=== PATIENT | female | born 1960 | race Hispanic/Latino ===

== ENCOUNTER 2019-08-31 18:06 | Emergency (ER) | payer SELFPAY ==
[2019-08-31] MEDS ORDERED: IBUPROFEN 600 MG TAB PO ONE (18:49)
[2019-08-31] MEDS ORDERED: ACETAMINOPHEN 325 MG TAB PO ONE (18:49)
--- NOTE | 2019-08-31 18:53 | Emergency Department Report ---
ED Lower Extremity HPI - General Chief Complaint: Extremity Injury, Lower Stated Complaint: KNEE PAIN Time Seen by Provider: 08/31/19 18:26 Source: patient, RN notes reviewed Mode of arrival: Ambulatory Limitations: Physical Limitation - History of Present Illness Initial Comments: During the entire history and physical examination, I am silo painter and escorted by nurse Irlanda Springer The patient is a 59-year-old female. She is not known to myself previously. She states no fever, cough, or confirmed exposure to coronavirus. She presents to the ER with a complaint of right anterior quadricep pain, swelling, after mechanical fall approximately 1 week ago. She fell from standing onto her right knee, and felt like she pulled or popped something in her right anterior quadricep. She denies DVT and pulmonary embolism risk factors. Her pain is sharp, throbbing and aching, increases with palpation, range of motion, right leg extension, and decreases with rest and position. She has also has right anterior knee pain. No other additional injuries or complaints. Minimal relief with [id number] analgesics. MD Complaint: thigh injury, knee injury -: days(s) Injury: Thigh: Right, Knee: Right Type of Injury: blunt Place: home Severity: moderate Improves With: rest Worsens With: movement, palpation Context: fall Associated Symptoms: able to partially bear weight, other Treatments Prior to Arrival: NSAIDS - Related Data Home Medications Medication Instructions Recorded Confirmed Last Taken Lisinopril/Hydrochlorothiazide 04/20/13 04/20/13 Unknown [Zestoretic 20-25 mg] Previous Rx's Medication Instructions Recorded Last Taken Type Acetaminophen [Non-Aspirin Extra 500 mg PO Q6HR PRN #30 tablet 08/31/19 Unknown Rx Strength] Amlodipine Besylate [Norvasc] 5 mg PO QDAY #30 tablet 08/31/19 Unknown Rx Ibuprofen [Motrin] 600 mg PO Q8H PRN #30 tablet 08/31/19 Unknown Rx Allergies Allergy/AdvReac Type Severity Reaction Status Date / Time tetracycline [Tetracycline] Allergy Rash Verified 08/31/19 18:08 tramadol Allergy Itching Verified 08/31/19 18:08 ED Review of Systems ROS: Stated complaint: KNEE PAIN Other details as noted in HPI Constitutional: denies: fever Eyes: as per HPI ENT: as per HPI Respiratory: see HPI. denies: cough Cardiovascular: denies: chest pain Gastrointestinal: denies: abdominal pain Genitourinary: as per HPI Musculoskeletal: arthralgia, myalgia Skin: as per HPI Neurological: as per HPI. denies: headache, numbness, paresthesias, confusion Psychiatric: as per HPI Hematological/Lymphatic: as per HPI. denies: easy bleeding ED Past Medical Hx - Past Medical History Hx Hypertension: Yes Additional medical history: hypothyroidism - Surgical History Past Surgical History?: No - Social History Smoking Status: Never Smoker - Medications Home Medications: Home Medications Medication Instructions Recorded Confirmed Last Taken Type Lisinopril/Hydrochlorothiazide 04/20/13 04/20/13 Unknown History [Zestoretic 20-25 mg] Acetaminophen [Non-Aspirin Extra 500 mg PO Q6HR PRN #30 tablet 08/31/19 Unknown Rx Strength] Amlodipine Besylate [Norvasc] 5 mg PO QDAY #30 tablet 08/31/19 Unknown Rx Ibuprofen [Motrin] 600 mg PO Q8H PRN #30 tablet 08/31/19 Unknown Rx ED Physical Exam - General Limitations: Physical Limitation General appearance: alert, in no apparent distress - Head Head exam: Present: atraumatic, normocephalic - Eye Eye exam: Present: normal appearance, EOMI. Absent: nystagmus - ENT ENT exam: Present: normal exam, normal orophraynx, mucous membranes moist, normal external ear exam - Neck Neck exam: Present: normal inspection, full ROM. Absent: tenderness, meningismus - Respiratory Respiratory exam: Present: normal lung sounds bilaterally. Absent: respiratory distress - Cardiovascular Cardiovascular Exam: Present: regular rate, normal rhythm, normal heart sounds. Absent: bradycardia, tachycardia, irregular rhythm, systolic murmur, diastolic murmur, rubs, gallop - GI/Abdominal GI/Abdominal exam: Present: soft. Absent: distended, tenderness, guarding, rebound, rigid, pulsatile mass - Extremities Exam Extremities exam: Present: normal inspection, full ROM (Full range of motion noted to the bilateral knees, ankles and hips. Patient is able to extend and flex both knees, however, she has significant pain when extending the right knee.), tenderness (The right anterior quadricep is indurated, with no redness, pus or streaking. There is also tenderness. The muscular compartments are soft.), normal capillary refill, other (2+ pulses noted in the bilateral upper and lower extremities. There is no palpable cord. negative Homans sign. Muscular compartments are soft. The pelvis is stable.). Absent: calf tenderness - Back Exam Back exam: Present: normal inspection, full ROM. Absent: tenderness, CVA tenderness (R), CVA tenderness (L), paraspinal tenderness, vertebral tenderness - Neurological Exam Neurological exam: Present: alert, oriented X3, other (There is no facial droop. The tongue is midline. Extraocular movements are intact bilaterally. There is 5 out of 5 strength in bilateral upper and lower extremities. Sensation is intact to light touch bilateral upper and lower extremities. ). Absent: motor sensory deficit - Psychiatric Psychiatric exam: Present: normal affect, normal mood - Skin Skin exam: Present: warm, dry, intact, normal color. Absent: rash ED Course Vital Signs 08/31/19 08/31/19 18:12 20:02 Temperature 97.8 F Pulse Rate 109 H 88 Respiratory 20 18 Rate Blood Pressure 261/172 Blood Pressure 242/141 [Left] O2 Sat by Pulse 97 99 Oximetry - Reevaluation(s) Reevaluation #1: 08/31/19 20:04 Elevated blood pressure is reviewed and appreciated. This is likely chronic. Patient has not been on antihypertensive therapy for quite some time. Please reference the [employer] clinical policy on hypertension which is not acutely symptomatic. Patient will be restarted on blood pressure medication, she can follow-up with an outpatient primary care doctor for this ED Lower Extremity MDM - Lab Data Vital Signs 08/31/19 08/31/19 18:12 20:02 Temperature 97.8 F Pulse Rate 109 H 88 Respiratory 20 18 Rate Blood Pressure 261/172 Blood Pressure 242/141 [Left] O2 Sat by Pulse 97 99 Oximetry - Radiology Data Radiology results: pending, report reviewed, image reviewed interpreted by me: X-ray of the right hip, pelvis, right femur, right knee, right fibula/tibia negative for acute fracture/dislocation. DJD is noted - Medical Decision Making Differential diagnosis, including but not limited to: Quadriceps sprain, strain, DJD, fracture, dislocation Assessment and plan: 59-year-old female status post mechanical fall 1 week ago, with palpable right anterior quadricep and duration, suspicious for partial quadriceps tear, versus sprain, strain. X-rays show no fracture or dislocation, and she is neurovascularly intact. Her physical examination is otherwise unremarkable. She does not appear to have an emergent medical condition at this time. Weightbearing as tolerated, crutches as needed for assistance, bulky Chin dressing applied to right quadricep, she will need to follow-up with outpatient orthopedic/physical therapy. Discussed this plan of care with the patient who verbalized understanding, and who is amenable to this plan of care Critical care attestation.: If time is entered above; I have spent that time in minutes in the direct care of this critically ill patient, excluding procedure time. ED Disposition Clinical Impression: Elevated blood pressure reading Strain of right quadriceps Qualifiers: Encounter type: initial encounter Qualified Code(s): S76.111A - Strain of right quadriceps muscle, fascia and tendon, initial encounter Disposition: TO HOME OR SELFCARE Is pt being admited?: No Does the pt Need Aspirin: No Condition: Stable Instructions: Muscle Strain (ED) Additional Instructions: Use the crutches as needed and directed. Weightbearing as tolerated in the right lower extremity. Take the pain medication as needed and directed. Alternate ice packs, and heat packs. Follow-up with an orthopedist or physical therapist or [employer] within the next 7 to 10 days. Return to the emergency room right away with new, worsened or different symptoms, or symptoms not present on the initial emergency room evaluation. Please avoid strenuous physical activities and heavy lifting. Patient was also found to have elevated blood pressure while here in the emergency room today. Take the blood pressure medication as directed, follow-up with the primary care doctor for a blood pressure check in 2 to 4 weeks. Long-term complications of hypertension and elevated blood pressure include stroke, heart attack, disability, paralysis, loss of quality of life. Ways to improve blood pressure include exercise, weight loss, proper diet, including plenty of fiber, vegetables, lean protein, avoidance of starches, sugars, simple carbohydrates and sugary drinks. Prescriptions: Ibuprofen [Motrin] 600 mg PO Q8H PRN #30 tablet PRN Reason: Pain Acetaminophen [Non-Aspirin Extra Strength] 500 mg PO Q6HR PRN #30 tablet PRN Reason: Pain , Severe (7-10) Referrals: [facility] [Provider Group] - 3-5 Days PETE AGUIRRE MD [Staff Physician] - 3-5 Days CARINA FISCHER MD [Staff Physician] - 3-5 Days [facility] [Provider Group] - 3-5 Days
--- NOTE | 2019-08-31 19:53 | XRay Report ---
HISTORY:fall right leg pain COMPARISON: None. TECHNIQUE: AP lateral and obliques views were obtained FINDINGS: Bones: No fracture or dislocation. Joint spaces: Maintained. Soft tissues: No significant abnormality. Additional findings: None. IMPRESSION: 1. No significant abnormality. Signer Name: Patel Euceda MD Signed: 08/31/2019 7:49 PM Workstation Name: [id number]
--- NOTE | 2019-08-31 19:54 | XRay Report ---
HISTORY:falll right leg pain COMPARISON: None. TECHNIQUE: AP lateral and obliques views were obtained FINDINGS: Bones: No fracture or dislocation. Joint spaces: Maintained. Soft tissues: No significant abnormality. Additional findings: None. IMPRESSION: 1. No significant abnormality. Signer Name: Patel Euceda MD Signed: 08/31/2019 7:50 PM Workstation Name: [id number]
[2019-08-31 20:03] VITALS: BP 242/141
== END 2019-08-31 20:20 | disposition home or self-care (01) ==
LOC: ED 18:06
DX: S76.111A Strain of right quadriceps muscle, fascia and tendon, initial encounter (principal); I10 Essential (primary) hypertension; E03.9 Hypothyroidism, unspecified; X58.XXXA Exposure to other specified factors, initial encounter; Y93.89 Activity, other specified; Y92.89 Other specified places as the place of occurrence of the external cause; Y99.8 Other external cause status
CPT/HCPCS: 99283

== ENCOUNTER 2020-04-11 12:37 | Outpatient (CLI) | payer MEDICAID | END 2020-04-11 12:38 | disposition home or self-care (01) | LOC: CARD 12:37 | PROVIDERS: ATTEND Family Medicine | DX: I10 Essential (primary) hypertension (principal) | CPT/HCPCS: 93005 ==

== ENCOUNTER 2021-05-01 10:39 | Emergency (ER) | payer MEDICAID ==
[2021-05-01] MEDS ORDERED: cloNIDine 0.2 MG TAB PO ONE (11:29)
--- NOTE | 2021-05-01 11:29 | Event Note ---
ED Screening Note Date of service: 05/01/21 Time: 11:28 ED Screening Note: Patient presents with complaints of sudden onset of left shoulder pain this morning She states she was moving boxes yesterday and believes she hurt her arm Patient has history of an MO, diabetes, hypertension Blood pressure extremely elevated today Denies shortness of breath This initial assessment/diagnostic orders/clinical plan/treatment(s) is/are subject to change based on patients health status, clinical progression and re- assessment by fellow clinical providers in the ED. Further treatment and workup at subsequent clinical providers discretion. Patient/guardian urged not to elope from the ED as their condition may be serious if not clinically assessed and managed. Initial orders include: EKG Chest x-ray Labs
[2021-05-01] MEDS ORDERED: KETOROLAC 60 MG/2 ML INJ IM ONE (11:38)
--- NOTE | 2021-05-01 11:42 | Emergency Department Report ---
HPI - General Chief Complaint: Extremity Injury, Upper Time Seen by Provider: 05/01/21 11:18 - HPI HPI: MSE 1 The patient is a 60-year-old female present with a chief complaint of left shoulder pain. The patient states yesterday she was unpacking boxes for several hours and later that evening she developed pain in her left shoulder. Patient complains excruciating pain whenever she attempts to move her left shoulder. Patient denies any direct trauma. ED Past Medical Hx - Past Medical History Hx Hypertension: Yes Hx Diabetes: Yes Additional medical history: hypothyroidism, hyperlipidemia - Surgical History Past Surgical History?: No - Family History Family history: no significant - Social History Smoking Status: Current Every Day Smoker (1/8 pack/day) Substance Use Type: None (Denies illicit drug use), Alcohol (Occasional) - Medications Home Medications: Home Medications Medication Instructions Recorded Confirmed Last Taken Type Lisinopril/Hydrochlorothiazide 04/20/13 04/20/13 Unknown History [Zestoretic 20-25 mg] Acetaminophen [Non-Aspirin Extra 500 mg PO Q6HR PRN #30 tablet 08/31/19 Unknown Rx Strength] Amlodipine Besylate [Norvasc] 5 mg PO QDAY #30 tablet 08/31/19 Unknown Rx Ibuprofen [Motrin] 600 mg PO Q8H PRN #30 tablet 08/31/19 Unknown Rx Amlodipine Besylate [Norvasc] 10 mg PO DAILY #60 tablet 10/26/19 Unknown Rx Cyclobenzaprine [Flexeril] 10 mg PO QHS PRN #10 tablet 10/26/19 Unknown Rx Naproxen 500 mg PO Q12H PRN #12 tablet 10/26/19 Unknown Rx Cyclobenzaprine [Flexeril] 10 mg PO TID PRN #10 tablet 05/01/21 Unknown Rx HYDROcodone/APAP 5-325 [[place] 1 - 2 each PO Q6HR PRN #10 tablet 05/01/21 Unknown Rx 5/325] Ibuprofen [Motrin 800 MG tab] 800 mg PO Q8HR PRN #20 tablet 05/01/21 Unknown Rx ED Review of Systems ROS: Stated complaint: shoulder pains Other details as noted in HPI Constitutional: no symptoms reported Eyes: denies: eye pain ENT: denies: throat pain Respiratory: no symptoms reported Cardiovascular: denies: chest pain Endocrine: no symptoms reported Gastrointestinal: denies: nausea Genitourinary: denies: dysuria Musculoskeletal: arthralgia, myalgia Neurological: denies: headache Physical Exam - Physical Exam Vital Signs: Vital Signs 05/01/21 10:58 Temperature 98.2 F Pulse Rate 64 Respiratory 15 Rate Blood Pressure 237/122 O2 Sat by Pulse 95 Oximetry Physical Exam: GENERAL: The patient is well-developed well-nourished female sitting in chair not appearing to be in acute distress. [] HEENT: Normocephalic. Atraumatic. Extraocular motions are intact. Patient has moist mucous membranes. NECK: Supple. Trachea mid CHEST/LUNGS: Clear to auscultation. There is no respiratory distress noted. HEART/CARDIOVASCULAR: Regular. There is no tachycardia. There is no gallop rub or murmur. ABDOMEN: Abdomen is soft, nontender. Patient has normal bowel sounds. There is no abdominal distention. SKIN: There is no rash. There is no edema. There is no diaphoresis. NEURO: The patient is awake, alert, and oriented. The patient is cooperative. The patient has no focal neurologic deficits. The patient has normal speech. GCS 15 MUSCULOSKELETAL: There is limited range of motion of left shoulder secondary to pain ED Course Vital Signs 05/01/21 10:58 Temperature 98.2 F Pulse Rate 64 Respiratory 15 Rate Blood Pressure 237/122 O2 Sat by Pulse 95 Oximetry ED Medical Decision Making - Lab Data Result diagrams: 05/01/21 11:38 05/01/21 11:38 Laboratory Tests 05/01/21 05/01/21 11:38 11:38 WBC 7.5 RBC 4.72 Hgb 15.2 H Hct 47.0 H MCV 100 H MCH 32 MCHC 32 RDW 13.9 Plt Count 196 Lymph % (Auto) 14.4 Levy % (Auto) 8.0 H Eos % (Auto) 1.4 Baso % (Auto) 0.8 Lymph # (Auto) 1.1 L Levy # (Auto) 0.6 Eos # (Auto) 0.1 Baso # (Auto) 0.1 Seg Neutrophils % 75.4 H Seg Neutrophils # 5.7 Sodium 135 L Potassium 4.4 Chloride 100.8 Carbon Dioxide 19 L Anion Gap 20 BUN 33 H Creatinine 1.5 H Estimated GFR 36 BUN/Creatinine Ratio 22 Glucose 234 H Calcium 9.5 Total Bilirubin 0.30 AST 13 ALT 15 Alkaline Phosphatase 66 Troponin T < 0.010 Total Protein 6.4 Albumin 3.7 L Albumin/Globulin Ratio 1.4 - EKG Data -: EKG Interpreted by Me EKG shows normal: sinus rhythm Rate: normal - EKG Data When compared to previous EKG there are: no significant change Interpretation: unchanged when compared t (04/11/2020) - Radiology Data Radiology results: report reviewed (Chest x-ray), image reviewed (Chest x-ray) [facility] [address] [place] [address] XRay Report Signed Patient: JEANCARLOS GODWIN MR#: [id number] : 1960 Acct:[id number] Age/Sex: 60 / F ADM Date: 05/01/21 Loc: ED Attending Dr: Ordering Physician: AMI ENRIQUEZ Date of Service: 05/01/21 Procedure(s): XR chest routine 2V Accession Number(s): [id number] cc: AMI ENRIQUEZ Fluoro Time In Minutes: CHEST PA AND LATERAL VIEWS INDICATION: chest pain/left shoulder pain. COMPARISON: 11/25/2019 FINDINGS: Support devices: None. Heart: Within normal limits. Lungs/Pleura: No acute pulmonary or pleural findings. IMPRESSION: 1. No acute findings. Signer Name: Jarrett Galindo MD Signed: 05/01/2021 12:35 PM Workstation Name: [id number] Transcribed By: Dictated By: Jarrett Galindo MD Electronically Authenticated By: Jarrett Galindo MD Signed Date/Time: 05/01/21 1235 DD/ 1232 TD/TT: Print Cancel - Differential Diagnosis Rotator cuff injury, bursitis, hypertensive urgency Critical care attestation.: If time is entered above; I have spent that time in minutes in the direct care of this critically ill patient, excluding procedure time. ED Disposition Clinical Impression: Left shoulder pain, Acute bursitis of left shoulder Disposition: 01 HOME / SELF CARE / HOMELESS Is pt being admited?: No Does the pt Need Aspirin: No Condition: Stable Instructions: Bursitis, Wist-st-Nsdv, Shoulder Pain Additional Instructions: Return to the emergency department should you develop worsening symptoms, inability to tolerate food or liquids, high fever or any other concerns Prescriptions: Cyclobenzaprine [Flexeril] 10 mg PO TID PRN #10 tablet PRN Reason: Muscle Spasm Ibuprofen [Motrin 800 MG tab] 800 mg PO Q8HR PRN #20 tablet PRN Reason: Pain, Moderate (4-6) HYDROcodone/APAP 5-325 [[place] 5/325] 1 - 2 each PO Q6HR PRN #10 tablet PRN Reason: Pain Referrals: PRIMARY CAREMD [Primary Care Provider] - 3-5 Days PETE AYALA MD [Staff Physician] - 3-5 Days (Dr. Ayala is an orthopedic surgeon. Please follow-up with him for further evaluate) Time of Disposition: 15:37
[2021-05-01 12:29] LABS: Basophils # (Auto) 0.1 K/mm3 (0.0-0.1); Basophils % (Auto) 0.8 % (0.0-1.8); Eosinophils # (Auto) 0.1 K/mm3 (0.0-0.4); Eosinophils % (Auto) 1.4 % (0.0-4.3); Hemoglobin 15.2 gm/dl (10.1-14.3); Lymphocytes # (Auto) 1.1 K/mm3 (1.2-5.4); Lymphocytes % (Auto) 14.4 % (13.4-35.0); Mean Corpuscular HGB Conc 32 % (30-34); Mean Corpuscular Volume 100 fl (79-97); Monocytes # (Auto) 0.6 K/mm3 (0.0-0.8); Platelet Count 196 K/mm3 (140-440); Red Blood Count 4.72 M/mm3 (3.65-5.03); Red Cell Distribution Width 13.9 % (13.2-15.2)
[2021-05-01 12:31] LABS: Alanine Aminotransferase 15 units/L (7-56); Albumin 3.7 g/dL (3.9-5); BUN/Creatinine Ratio 22; Blood Urea Nitrogen 33 mg/dL (7-17); Calcium 9.5 mg/dL (8.4-10.2); Hemolysis Index 16
--- NOTE | 2021-05-01 12:40 | XRay Report ---
CHEST PA AND LATERAL VIEWS INDICATION: chest pain/left shoulder pain. COMPARISON: 11/25/2019 FINDINGS: Support devices: None. Heart: Within normal limits. Lungs/Pleura: No acute pulmonary or pleural findings. IMPRESSION: 1. No acute findings. Signer Name: Jarrett Galindo MD Signed: 05/01/2021 12:35 PM Workstation Name: [id number]
[2021-05-01 16:13] VITALS: BP 131/84
--- NOTE | 2021-05-02 12:12 | Electrocardiograph Report ---
[facility] Test Date: 2021-05-01 Test Time: 15:18:12 Pat Name: JEANCARLOS GODWIN Department: Room: Gender: F Public Works Inspector: LAWANDA : 1960 Requested By: AMI ENRIQUEZ Order Number: [id number] Reading MD: Hiram Mitchell Measurements Intervals [place] Rate: 53 P: 40 [place]: 201 QRS: 259 QRSD: 81 T: 105 QT: 461 QTc: 436 Interpretive Statements Sinus rhythm LAD, consider LAFB or inferior infarct Anteroseptal infarct, old Repol abnrm suggests ischemia, lateral leads ST elevation, consider inferior injury No previous ECG available for comparison Electronically Signed On 05-02-2021 12:12:27 EST by Hiram Mitchell
== END 2021-05-01 16:13 | disposition home or self-care (01) ==
LOC: ED 10:39
DX: M25.512 Pain in left shoulder (principal); M75.52 Bursitis of left shoulder; I10 Essential (primary) hypertension; E11.8 Type 2 diabetes mellitus with unspecified complications; E03.9 Hypothyroidism, unspecified; E78.5 Hyperlipidemia, unspecified; F17.200 Nicotine dependence, unspecified, uncomplicated; Z88.1 Allergy status to other antibiotic agents; Z88.5 Allergy status to narcotic agent
CPT/HCPCS: 36415; 71046; 80053; 84484; 85025; 93005; 96372; 99284; J1885

== ENCOUNTER 2021-07-28 14:12 | Inpatient (IN) | payer MEDICAID ==
[2021-07-28] MEDS ORDERED: SODIUM CHLORIDE 0.9% 1000 ML 1,000 ML IV ONE (15:11)
[2021-07-28] MEDS ORDERED: MORPHINE 4 MG/1 ML INJ IV ONE (15:12)
[2021-07-28] MEDS ORDERED: ONDANSETRON 4 MG/2 ML INJ IV ONE (15:12)
[2021-07-28 15:54] LABS: Hematocrit 48.4 % (30.3-42.9); Hemoglobin 15.9 gm/dl (10.1-14.3); Mean Corpuscular HGB Conc 33 % (30-34); Mean Corpuscular Volume 98 fl (79-97); Platelet Count 116 K/mm3 (140-440); Red Blood Count 4.94 M/mm3 (3.65-5.03); Red Cell Distribution Width 15.1 % (13.2-15.2)
[2021-07-28 16:19] LABS: Albumin 3.5 g/dL (3.9-5); Calcium 10.2 mg/dL (8.4-10.2)
[2021-07-28] MEDS ORDERED: amLODIPine 5 MG TAB PO ONE (17:37)
--- NOTE | 2021-07-28 17:37 | Emergency Department Report ---
ED General Adult HPI - General Chief complaint: Weakness Stated complaint: cramps PUI?: No Time Seen by Provider: 07/28/21 15:04 Source: patient, RN notes reviewed, old records reviewed Mode of arrival: Ambulatory Limitations: No Limitations - History of Present Illness Initial comments: The patient was evaluated in the emergency department for symptoms described in the history of present illness. He/she was evaluated in the context of the global COVID-19 pandemic, which necessitated consideration that the patient might be at risk for infection with the virus that causes COVID-19. Institutional protocols and algorithms that pertain to the evaluation of patients at risk for COVID-19 are in a state of rapid change based on information released by regulatory bodies including the CDC and federal and state organizations. These policies and algorithms were followed during the patient's care in the emergency department. Please note that these policies, procedures and recommendations changed on a rapid basis. The patient is a 61-year-old female with a history of being COVID-19 vaccinated, hypertension, diabetes, currently maintained on Invokana for the past 3 months. She presents to the ER today with a complaint of malaise, fatigue, and cramping. She endorses suprapubic pressure, but no dysuria. She denies dark-colored urine. She denies fevers and chills. She denies chest pain and upper abdominal pain. She denies vomiting, diarrhea. She denies muscular pain but endorses diffuse myalgias. -: Gradual, days(s) Location: left, right, upper extremity, lower extremity Severity scale (0 -10): 7 Quality: aching Consistency: intermittent Improves with: none Worsens with: none - Related Data Home Medications Medication Instructions Recorded Confirmed Last Taken Lisinopril/Hydrochlorothiazide 04/20/13 04/20/13 Unknown [Zestoretic 20-25 mg] Previous Rx's Medication Instructions Recorded Last Taken Type Acetaminophen [Non-Aspirin Extra 500 mg PO Q6HR PRN #30 tablet 08/31/19 Unknown Rx Strength] Amlodipine Besylate [Norvasc] 5 mg PO QDAY #30 tablet 08/31/19 Unknown Rx Ibuprofen [Motrin] 600 mg PO Q8H PRN #30 tablet 08/31/19 Unknown Rx Amlodipine Besylate [Norvasc] 10 mg PO DAILY #60 tablet 05/28/20 Unknown Rx Cyclobenzaprine [Flexeril] 10 mg PO QHS PRN #10 tablet 10/26/19 Unknown Rx Naproxen 500 mg PO Q12H PRN #12 tablet 10/26/19 Unknown Rx Cyclobenzaprine [Flexeril] 10 mg PO TID PRN #10 tablet 05/01/21 Unknown Rx HYDROcodone/APAP 5-325 [Hardy 1 - 2 each PO Q6HR PRN #10 tablet 05/01/21 Unknown Rx 5/325] Ibuprofen [Motrin 800 MG tab] 800 mg PO Q8HR PRN #20 tablet 05/01/21 Unknown Rx Allergies Allergy/AdvReac Type Severity Reaction Status Date / Time tetracycline [Tetracycline] Allergy Rash Verified 10/26/19 14:00 tramadol Allergy Itching Verified 10/26/19 14:00 ED Review of Systems ROS: Stated complaint: HIGH GLUCOSE Other details as noted in HPI Constitutional: malaise, weakness. denies: fever Eyes: denies: eye discharge ENT: denies: epistaxis Respiratory: denies: cough Cardiovascular: denies: chest pain Gastrointestinal: nausea. denies: abdominal pain, vomiting, diarrhea Genitourinary: denies: dysuria Musculoskeletal: arthralgia, myalgia Neurological: weakness Psychiatric: anxiety ED Past Medical Hx - Past Medical History Hx Hypertension: Yes Hx Diabetes: Yes Additional medical history: hypothyroidism, hyperlipidemia - Social History Smoking Status: Current Every Day Smoker (1/8 pack/day) Substance Use Type: None (Denies illicit drug use), Alcohol (Occasional) - Medications Home Medications: Home Medications Medication Instructions Recorded Confirmed Last Taken Type Lisinopril/Hydrochlorothiazide 04/20/13 04/20/13 Unknown History [Zestoretic 20-25 mg] Acetaminophen [Non-Aspirin Extra 500 mg PO Q6HR PRN #30 tablet 08/31/19 Unknown Rx Strength] Amlodipine Besylate [Norvasc] 5 mg PO QDAY #30 tablet 08/31/19 Unknown Rx Ibuprofen [Motrin] 600 mg PO Q8H PRN #30 tablet 08/31/19 Unknown Rx Amlodipine Besylate [Norvasc] 10 mg PO DAILY #60 tablet 10/26/19 Unknown Rx Cyclobenzaprine [Flexeril] 10 mg PO QHS PRN #10 tablet 10/26/19 Unknown Rx Naproxen 500 mg PO Q12H PRN #12 tablet 10/26/19 Unknown Rx Cyclobenzaprine [Flexeril] 10 mg PO TID PRN #10 tablet 05/01/21 Unknown Rx HYDROcodone/APAP 5-325 [Hardy 1 - 2 each PO Q6HR PRN #10 tablet 05/01/21 Unknown Rx 5/325] Ibuprofen [Motrin 800 MG tab] 800 mg PO Q8HR PRN #20 tablet 05/01/21 Unknown Rx ED Physical Exam - General Limitations: No Limitations General appearance: alert, in no apparent distress, obese - Head Head exam: Present: atraumatic, normocephalic - Eye Eye exam: Present: normal appearance, EOMI. Absent: nystagmus - ENT ENT exam: Present: normal exam, normal orophraynx, mucous membranes moist, normal external ear exam - Neck Neck exam: Present: normal inspection, full ROM. Absent: tenderness, meningismus - Respiratory Respiratory exam: Present: normal lung sounds bilaterally. Absent: respiratory distress, wheezes, rales, rhonchi, stridor, decreased breath sounds - Cardiovascular Cardiovascular Exam: Present: regular rate, normal rhythm, normal heart sounds. Absent: bradycardia, tachycardia, irregular rhythm, systolic murmur, diastolic murmur, rubs, gallop - GI/Abdominal GI/Abdominal exam: Present: soft. Absent: distended, tenderness, guarding, rebound, rigid, pulsatile mass - Extremities Exam Extremities exam: Present: normal inspection, full ROM, other (2+ pulses noted in the bilateral upper and lower extremities. There is no palpable cord. negative Homans sign. Muscular compartments are soft. The pelvis is stable.). Absent: pedal edema, calf tenderness - Back Exam Back exam: Present: normal inspection, full ROM. Absent: tenderness, CVA tenderness (R), CVA tenderness (L), paraspinal tenderness, vertebral tenderness - Neurological Exam Neurological exam: Present: alert, oriented X3, normal gait, other (No facial droop. Tongue midline. Extraocular movements intact bilaterally. Facial sensation intact to light touch in V1, V2, V3 distribution bilaterally. 5 and a 5 strength in 4 extremities. Sensation intact to light touch in 4 extremities.). Absent: motor sensory deficit - Psychiatric Psychiatric exam: Present: normal affect, normal mood - Skin Skin exam: Present: warm, dry, intact, normal color. Absent: rash ED Course Vital Signs 07/28/21 14:20 Temperature 98.5 F Pulse Rate 92 H Respiratory 19 Rate Blood Pressure 199/116 [Right] O2 Sat by Pulse 98 Oximetry - Reevaluation(s) Reevaluation #1: 07/28/21 17:47 Differential diagnosis, including but not limited to: Rhabdomyolysis, transaminitis, hepatitis, viral syndrome Assessment and plan: 61-year-old female, who is COVID-19 vaccinated, who reports taking ibuprofen at home for myalgias, but denies taking Tylenol/acetaminophen, who presents to the ER with nonspecific constitutional symptoms, without fever, she is COVID-19 vaccinated, with diffuse myalgias and arthralgias. She is found to have leukopenia, thrombocytopenia, new onset transaminitis. Her muscular compartments are soft. She denies Coca-[employer]a colored urine. Additional laboratory studies ordered, including coagulation profile, acute hepatitis panel, CK, and Tylenol level. Right upper quadrant ultrasound was ordered by myself. Urinalysis is pending. Please note this patient was initially seen by my nurse practitioner colleague, who ordered a CAT scan of the abdomen pelvis without discussion with myself. I did instruct that the CAT scan of the abdomen pelvis should be canceled or discontinued, but it appears that it was obtained anyhow. I am currently awaiting results of the aforementioned laboratory studies, in addition to right upper quadrant ultrasound. Have requested GI consultation. Anticipate admission to the medical service for supportive care, and expedited diagnostic work-up. I discussed this with the patient. She is agreeable to this plan of care. Awaiting callback from GI. 07/28/21 17:50 Elevated blood pressure is chronic. Norvasc is ordered. 07/28/21 18:03 I discussed the patient's history, physical, laboratory studies and clinical impression with GI on-call, Dr. Gallegos. Admission is recommended and he indicates that his group will follow in consultation. He also requests RAMANA panel. I have ordered this. I will defer to inpatient team to follow-up on this. Hospital physician, Dr. Goode to admit patient to the medical service. Patient is agreeable to admission and hospitalization. ED Medical Decision Making - Lab Data Result diagrams: 07/28/21 15:28 07/28/21 15:28 Vital Signs 07/28/21 14:20 Temperature 98.5 F Pulse Rate 92 H Respiratory 19 Rate Blood Pressure 199/116 [Right] O2 Sat by Pulse 98 Oximetry Lab Results 07/28/21 07/28/21 07/28/21 Range/Units 14:16 15:28 15:28 WBC 2.0 L (4.5-11.0) K/mm3 RBC 4.94 (3.65-5.03) M/mm3 Hgb 15.9 H (10.1-14.3) gm/dl Hct 48.4 H (30.3-42.9) % MCV 98 H (79-97) fl MCH 32 (28-32) pg MCHC 33 (30-34) % RDW 15.1 (13.2-15.2) % Plt Count 116 L (140-440) K/mm3 Sodium 134 L (137-145) mmol/L Potassium 4.6 (3.6-5.0) mmol/L Chloride 98.6 (98-107) mmol/L Carbon Dioxide 23 (22-30) mmol/L Anion Gap 17 mmol/L BUN 21 H (7-17) mg/dL Creatinine 1.2 (0.6-1.2) mg/dL Estimated GFR 46 ml/min BUN/Creatinine Ratio 18 % Glucose 250 H (65-100) mg/dL POC Glucose 288 H (70-105) mg/dL Calcium 10.2 (8.4-10.2) mg/dL Total Bilirubin 1.20 (0.1-1.2) mg/dL AST 1872 H (5-40) units/L ALT 2023 H (7-56) units/L Alkaline Phosphatase 222 H (35-129) units/L Total Protein 6.4 (6.3-8.2) g/dL Albumin 3.5 L (3.9-5) g/dL Albumin/Globulin Ratio 1.2 % Lipase 51 (13-60) units/L Critical care attestation.: If time is entered above; I have spent that time in minutes in the direct care of this critically ill patient, excluding procedure time. ED Disposition Clinical Impression: Transaminitis, Leukopenia, Thrombocytopenia, Elevated blood pressure reading Disposition: ADMITTED INPATIENT Is pt being admited?: Yes Does the pt Need Aspirin: No Condition: Good Referrals: PRIMARY CARE, [Primary Care Provider] - 3-5 Days
--- NOTE | 2021-07-28 18:02 | History and Physical Report ---
History of Present Illness Chief complaint: I have not been feeling good History of present illness: 61 YO Female with Obesity, HTN, HLD, Hypothyroidism, Nicotine Dependence, DM currently taking Invokana, Metabolic Syndrome presents to ED for evaluation. Patient reports "I have been feeling good". Patient states that she had experienced generalized weakness, malaise, muscle cramping over the past 1 week with persistent but intermittent symptoms over the same timeframe. Patient transported to [facility] via private vehicle for further care and evaluation of the aforementioned symptoms. The patient was seen and evaluated in the emergency department. All lab and imaging studies reviewed. Patient found to have acute hepatic failure with resultant elevated liver function test, hyponatremia, and diabetes mellitus. Patient admitted to medical floor and treated with supportive care. Gastroenterology team consulted in ED. Patient denies fever, chills, chest pain, palpitation, productive cough, skin rash, recent contact, ingestion of food/water from new or different sources, or known exposure to COVID-19. No prior admission for review. All medication listed at time of admission has been reconciled. Advanced care planning conducted in ED. Past History Past Medical History: diabetes, hypertension, hyperlipidemia, hypothyroidism, other (See HPI) Past Surgical History: No surgical history, Other (Reviewed) Social history: , smoking. denies: alcohol abuse, prescription drug abuse Family history: diabetes, hypertension Medications and Allergies Allergies Allergy/AdvReac Type Severity Reaction Status Date / Time tramadol Allergy Intermediate Itching Verified 07/28/21 19:58 tetracycline [Tetracycline] Allergy Rash Verified 07/28/21 19:57 Home Medications Medication Instructions Recorded Confirmed Last Taken Type Canagliflozin [Invokana] 100 mg PO QAM 07/28/21 07/28/21 07/28/21 History 100 mg Levothyroxine [Synthroid] 100 mcg PO QAM 07/28/21 07/28/21 07/28/21 History 100 mcg Losartan [Cozaar] 100 mg PO QDAY 07/28/21 07/28/21 07/28/21 History 100 mg Metoprolol [Lopressor TAB] 50 mg PO BID 07/28/21 07/28/21 07/28/21 08:00 History 50 mg Review of Systems Constitutional: weakness, malaise, no weight loss, no weight gain, no fever, no chills Ears, nose, mouth and throat: no ear pain, no ear discharge, no tinnitis, no nose pain Breasts: no change in shape, no swelling, no mass Cardiovascular: no chest pain, no syncope Respiratory: no cough, no cough with sputum, no hemoptysis, no shortness of breath Gastrointestinal: no abdominal pain, no nausea, no diarrhea, no hematemesis Genitourinary Female: no pelvic pain, no flank pain, no dysuria, no urinary frequency, no urgency Rectal: no pain, no bleeding Musculoskeletal: no neck stiffness, no neck pain, no low back pain, no leg numbness/tingling Integumentary: no rash, no redness, no wounds, no jaundice Neurological: no head injury, no paralysis, no parathesias, no numbness, no seizures Psychiatric: no anxiety, no change in sleep habits, no insomnia, no change in appetite, no hallucinations Endocrine: no cold intolerance, no excessive thirst, no polydipsia Hematologic/Lymphatic: no easy bruising Allergic/Immunologic: no urticaria, no allergic rhinitis, no wheezing Exam - Constitutional Vitals: Temp Pulse Resp BP Pulse Ox 98.5 F 92 H 19 199/116 98 07/28/21 14:20 07/28/21 14:20 07/28/21 14:20 07/28/21 14:20 07/28/21 14:20 General appearance: Present: mild distress, obese - EENT Eyes: Present: PERRL ENT: hearing intact, clear oral mucosa - Neck Neck: Present: supple, normal ROM - Respiratory Respiratory effort: normal Respiratory: bilateral: CTA - Cardiovascular Heart Sounds: Present: S1 & S2. Absent: rub, click - Extremities Extremities: pulses symmetrical, No edema Peripheral Pulses: within normal limits - Abdominal General gastrointestinal: Present: soft, non-tender, non-distended, normal bowel sounds Female genitourinary: Present: normal - Integumentary Integumentary: Present: clear, warm, dry - Musculoskeletal Musculoskeletal: gait normal, strength equal bilaterally - Psychiatric Psychiatric: appropriate mood/affect, intact judgment & insight - Neurologic Neurologic: CNII-XII intact, moves all extremities Results - Labs CBC & Chem 7: 07/28/21 17:44 07/28/21 15:28 Labs: Abnormal lab results 07/28/21 07/28/21 07/28/21 Range/Units 14:16 15:28 15:28 WBC 2.0 L (4.5-11.0) K/mm3 Hgb 15.9 H (10.1-14.3) gm/dl Hct 48.4 H (30.3-42.9) % MCV 98 H (79-97) fl Plt Count 116 L (140-440) K/mm3 Sodium 134 L (137-145) mmol/L BUN 21 H (7-17) mg/dL Glucose 250 H (65-100) mg/dL POC Glucose 288 H (70-105) mg/dL AST 1872 H (5-40) units/L ALT 2023 H (7-56) units/L Alkaline Phosphatase 222 H (35-129) units/L Albumin 3.5 L (3.9-5) g/dL Acetaminophen (10.0-30.0) ug/mL 07/28/21 Range/Units 15:38 WBC (4.5-11.0) K/mm3 Hgb (10.1-14.3) gm/dl Hct (30.3-42.9) % MCV (79-97) fl Plt Count (140-440) K/mm3 Sodium (137-145) mmol/L BUN (7-17) mg/dL Glucose (65-100) mg/dL POC Glucose (70-105) mg/dL AST (5-40) units/L ALT (7-56) units/L Alkaline Phosphatase (35-129) units/L Albumin (3.9-5) g/dL Acetaminophen 5.0 L (10.0-30.0) ug/mL Assessment and Plan - Patient Problems (1) Acute hepatic failure Current Visit: Yes Status: Acute Plan to address problem: CMP, repeat LFTs in a.m., gastroenterology team consulted in ED. Hepatitis profile. (2) Hyponatremia syndrome Current Visit: Yes Status: Acute Plan to address problem: IV fluid resuscitation therapy, BMP, repeat BMP in a.m. (3) Diabetes mellitus Current Visit: Yes Status: Acute Plan to address problem: Consistent carbohydrate diet, Accu-Chek, hypoglycemia protocol, insulin protocol. (4) Metabolic syndrome Current Visit: Yes Status: Acute Plan to address problem: Balanced diet, increase physical activity discharge, low-cholesterol diet. Supportive care (5) Hyperlipidemia Current Visit: Yes Status: Acute Qualifiers: Hyperlipidemia type: mixed hyperlipidemia Qualified Code(s): E78.2 - Mixed hyperlipidemia Plan to address problem: Supportive care, low-cholesterol diet. (6) DVT prophylaxis Current Visit: Yes Status: Acute Plan to address problem: SCD to bilateral lower extremities while in bed, patient is ambulatory (7) Advance care planning Current Visit: Yes Status: Acute Plan to address problem: Disease education conducted, care plan discussed, diagnoses discussed, prognosis discussed, patient is full code. Patient acknowledges understanding and agreement with care plan, +30 minutes.
--- NOTE | 2021-07-28 18:02 | Cat Scan Report ---
CT ABDOMEN AND PELVIS WITHOUT CONTRAST INDICATION / CLINICAL INFORMATION: abdominal pain, elevated LFT's. TECHNIQUE: Axial CT images were obtained through the abdomen and pelvis without IV contrast. All CT scans at this location are performed using CT dose reduction for ALARA by means of automated exposure control. COMPARISON: None available. FINDINGS: LOWER CHEST: No significant abnormality. LIVER: No significant abnormality. GALLBLADDER: No significant abnormality. BILE DUCTS: No significant abnormality. PANCREAS: No significant abnormality. SPLEEN: No significant abnormality. ADRENALS: No significant abnormality. RIGHT KIDNEY / URETER: There is a 5 mm nonobstructing calyceal stone in the mid right kidney. There i s no hydronephrosis. There are no ureteral calculi. LEFT KIDNEY / URETER: There is a 2 mm nonobstructing calyceal stone in the upper pole. There are no u reteral calculi. There is no hydronephrosis. STOMACH / SMALL BOWEL: No significant abnormality. COLON: No significant abnormality. APPENDIX: No significant abnormality. PERITONEUM: No free fluid. No free air. No fluid collection. LYMPH NODES: No significant adenopathy. AORTA / ARTERIES: Mild atherosclerotic calcification without acute abnormality. IVC / VEINS: No significant abnormality. URINARY BLADDER: No significant abnormality. REPRODUCTIVE ORGANS: No significant abnormality. ADDITIONAL FINDINGS: None. SKELETAL SYSTEM: No acute abnormality IMPRESSION: 1. There is no obstruction, inflammation, or free air. There are no abnormal fluid collections. 2. There is bilateral nephrolithiasis. There is no hydronephrosis. There are no ureteral calculi. Signer Name: Manuel Tsang MD Signed: 07/28/2021 5:58 PM Workstation Name: [id number]
[2021-07-28] MEDS ORDERED: IBUPROFEN 600 MG TAB PO PRN (18:10)
[2021-07-28] MEDS ORDERED: ALBUTEROL 2.5 MG/3 ML NEBU IH PRN (18:10)
[2021-07-28] MEDS ORDERED: ONDANSETRON 4 MG/2 ML INJ IV PRN (18:10)
[2021-07-28] MEDS ORDERED: HYDROmorphone 1 MG/1 ML INJ IV PRN (18:10)
[2021-07-28] MEDS ORDERED: CYCLOBENZAPRINE 10 MG TAB PO PRN (18:12)
[2021-07-28 18:29] LABS: Hepatitis B Surface Antigen Non-Reactive (Negative); Hepatitis C Virus Antibody Non-Reactive (NonReactive)
[2021-07-28 18:33] LABS: Bilirubin,Urine NEG (Negative); Blood,Urine SM (Negative); Color,Urine Yellow (Yellow); Protein,Urine <15 mg/dL mg/dL (Negative); RBC,Urine < 1.0 /HPF (0.0-6.0); Urobilinogen,Urine < 2.0 mg/dL (<2.0); WBC,Urine < 1.0 /HPF (0.0-6.0)
[2021-07-28 18:39] LABS: Hematocrit 46.7 % (30.3-42.9); Hemoglobin 15.9 gm/dl (10.1-14.3); Mean Corpuscular HGB Conc 34 % (30-34); Mean Corpuscular Volume 98 fl (79-97); Red Blood Count 4.77 M/mm3 (3.65-5.03); Red Cell Distribution Width 15.1 % (13.2-15.2)
[2021-07-28 18:40] LABS: Platelet Count 144 K/mm3 (140-440)
[2021-07-28 18:48] LABS: INR 0.95 (0.87-1.13); Partial Thromboplastin Time 27.2 Sec. (24.2-36.6)
--- NOTE | 2021-07-28 19:57 | Ultrasound Report ---
US abdomen limited INDICATION: transaminitis COMPARISON: CT abdomen pelvis same day.. FINDINGS: Pancreas: No significant abnormality identified in the visualized portions of the pancreas. Abdominal aorta: No significant abnormality. IVC: Normal. Liver: No significant abnormality. Gallbladder: Contracted. No gallstones. Bile ducts: The common bile duct measures 2 mm. Right Kidney: Not visualized Additional findings: No significant additional findings. IMPRESSION: No significant sonographic abnormality. Signer Name: Simone Aiken MD Signed: 07/28/2021 7:53 PM Workstation Name: [id number]
[2021-07-28] MEDS: MORPHINE 2 MG/1 ML INJ IV PRN (20:05)
[2021-07-28 21:30] LABS: Basophils % (Manual) 0 % (0.0-1.8); Eosinophils % (Manual) 0 % (0.0-4.3); Total Cells Counted 100
[2021-07-28 21:32] LABS: Giant Platelets Few; Platelet Estimate Consistent w Auto; RBC Morphology Normal
--- NOTE | 2021-07-29 07:20 | Progress Note ---
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 Patient expresses understanding. - Time: +15 min #Hypertension - continue amlodipine - metoprolol restarted at home dose #Advance care planning -Disease education conducted, care plan discussed, diagnoses discussed, prognosis discussed, patient is full code. Patient acknowledges understanding and agreement with care plan, +30 minutes. Disposition Plan: continue medical management History Interval history: No acute events overnight. Patient reports having generalized body pain. Updated on findings. No other complaints at this time. Hospitalist Physical - Physical exam Narrative exam: GENERAL: Obese. In no acute distress. HEENT: Normocephalic. Atraumatic. No scleral icterus noted. NECK: Supple. CHEST/LUNGS: CTAB on room air HEART/CARDIOVASCULAR: RRR. No murmur, rubs or gallops appreciated. ABDOMEN: +BS. NT/ND. NEURO: No focal motor deficit. Follows all commands. MUSCULOSKELETAL: No joint effusion EXTREMITIES: No cyanosis, clubbing or edema. PSYCH: Cooperative. - Constitutional Vitals: Temp Pulse Resp BP Pulse Ox 99.3 F 78 20 139/82 97 07/29/21 04:23 07/29/21 04:23 07/29/21 04:23 07/29/21 04:23 07/29/21 04:23 General appearance: Present: mild distress, obese Results - Labs CBC & Chem 7: 07/28/21 17:44 07/29/21 06:44 Labs: Laboratory Last Values WBC 2.1 K/mm3 (4.5-11.0) L 07/28/21 17:44 RBC 4.77 M/mm3 (3.65-5.03) 07/28/21 17:44 Hgb 15.9 gm/dl (10.1-14.3) H 07/28/21 17:44 Hct 46.7 % (30.3-42.9) H 07/28/21 17:44 MCV 98 fl (79-97) H 07/28/21 17:44 MCH 33 pg (28-32) H 07/28/21 17:44 MCHC 34 % (30-34) 07/28/21 17:44 RDW 15.1 % (13.2-15.2) 07/28/21 17:44 Plt Count 144 K/mm3 (140-440) 07/28/21 17:44 Add Manual Diff Complete 07/28/21 17:44 Total Counted 100 07/28/21 17:44 Seg Neuts % (Manual) 66.0 % (40.0-70.0) 07/28/21 17:44 Band Neutrophils % 0 % 07/28/21 17:44 Lymphocytes % (Manual) 27.0 % (13.4-35.0) 07/28/21 17:44 Reactive Lymphs % (Man) 0 % 07/28/21 17:44 Monocytes % (Manual) 7.0 % (0.0-7.3) 07/28/21 17:44 Eosinophils % (Manual) 0 % (0.0-4.3) 07/28/21 17:44 Basophils % (Manual) 0 % (0.0-1.8) 07/28/21 17:44 Metamyelocytes % 0 % 07/28/21 17:44 Myelocytes % 0 % 07/28/21 17:44 Promyelocytes % 0 % 07/28/21 17:44 Blast Cells % 0 % 07/28/21 17:44 Nucleated RBC % Not Reportable 07/28/21 17:44 Seg Neutrophils # Man 1.4 K/mm3 (1.8-7.7) L 07/28/21 17:44 Band Neutrophils # 0.0 K/mm3 07/28/21 17:44 Lymphocytes # (Manual) 0.6 K/mm3 (1.2-5.4) L 07/28/21 17:44 Abs React Lymphs (Man) 0.0 K/mm3 07/28/21 17:44 Monocytes # (Manual) 0.1 K/mm3 (0.0-0.8) 07/28/21 17:44 Eosinophils # (Manual) 0.0 K/mm3 (0.0-0.4) 07/28/21 17:44 Basophils # (Manual) 0.0 K/mm3 (0.0-0.1) 07/28/21 17:44 Metamyelocytes # 0.0 K/mm3 07/28/21 17:44 Myelocytes # 0.0 K/mm3 07/28/21 17:44 Promyelocytes # 0.0 K/mm3 07/28/21 17:44 Blast Cells # 0.0 K/mm3 07/28/21 17:44 WBC Morphology Not Reportable 07/28/21 17:44 Hypersegmented Neuts Not Reportable 07/28/21 17:44 Hyposegmented Neuts Not Reportable 07/28/21 17:44 Hypogranular Neuts Not Reportable 07/28/21 17:44 Smudge Cells Not Reportable 07/28/21 17:44 Toxic Granulation Not Reportable 07/28/21 17:44 Toxic Vacuolation Not Reportable 07/28/21 17:44 Dohle Bodies Not Reportable 07/28/21 17:44 Pelger-Huet Anomaly Not Reportable 07/28/21 17:44 Deepak Rods Not Reportable 07/28/21 17:44 Platelet Estimate Consistent w auto 07/28/21 17:44 Clumped Platelets Not Reportable 07/28/21 17:44 Plt Clumps, EDTA Not Reportable 07/28/21 17:44 Large Platelets Not Reportable 07/28/21 17:44 Giant Platelets Few 07/28/21 17:44 Platelet Satelliting Not Reportable 07/28/21 17:44 Plt Morphology Comment Not Reportable 07/28/21 17:44 RBC Morphology Normal 07/28/21 17:44 Dimorphic RBCs Not Reportable 07/28/21 17:44 Polychromasia Not Reportable 07/28/21 17:44 Hypochromasia Not Reportable 07/28/21 17:44 Poikilocytosis Not Reportable 07/28/21 17:44 Anisocytosis Not Reportable 07/28/21 17:44 Microcytosis Not Reportable 07/28/21 17:44 Macrocytosis Not Reportable 07/28/21 17:44 Spherocytes Not Reportable 07/28/21 17:44 Pappenheimer Bodies Not Reportable 07/28/21 17:44 Sickle Cells Not Reportable 07/28/21 17:44 Target Cells Not Reportable 07/28/21 17:44 Tear Drop Cells Not Reportable 07/28/21 17:44 Ovalocytes Not Reportable 07/28/21 17:44 Helmet Cells Not Reportable 07/28/21 17:44 [place] Bodies Not Reportable 07/28/21 17:44 Coin Rings Not Reportable 07/28/21 17:44 [place] Cells Not Reportable 07/28/21 17:44 Bite Cells Not Reportable 07/28/21 17:44 Crenated Cell Not Reportable 07/28/21 17:44 Elliptocytes Not Reportable 07/28/21 17:44 Acanthocytes (Spur) Not Reportable 07/28/21 17:44 Rouleaux Not Reportable 07/28/21 17:44 Hemoglobin C Crystals Not Reportable 07/28/21 17:44 Schistocytes Not Reportable 07/28/21 17:44 Malaria parasites Not Reportable 07/28/21 17:44 Santhosh Bodies Not Reportable 07/28/21 17:44 Hem Pathologist Commnt No 07/28/21 17:44 PT 13.7 Sec. (12.2-14.9) 07/28/21 17:44 INR 0.95 (0.87-1.13) 07/28/21 17:44 APTT 27.2 Sec. (24.2-36.6) 07/28/21 17:44 Sodium 134 mmol/L (137-145) L 07/28/21 15:28 Potassium 4.6 mmol/L (3.6-5.0) 07/28/21 15:28 Chloride 98.6 mmol/L (98-107) 07/28/21 15:28 Carbon Dioxide 23 mmol/L (22-30) 07/28/21 15:28 Anion Gap 17 mmol/L 07/28/21 15:28 BUN 21 mg/dL (7-17) H 07/28/21 15:28 Creatinine 1.2 mg/dL (0.6-1.2) 07/28/21 15:28 Estimated GFR 46 ml/min 07/28/21 15:28 BUN/Creatinine Ratio 18 % 07/28/21 15:28 Glucose 250 mg/dL (65-100) H 07/28/21 15:28 POC Glucose 175 mg/dL (70-105) H 07/28/21 18:48 Calcium 10.2 mg/dL (8.4-10.2) 07/28/21 15:28 Magnesium 2.00 mg/dL (1.7-2.3) 07/28/21 17:44 Total Bilirubin 1.20 mg/dL (0.1-1.2) 07/28/21 15:28 AST 1872 units/L (5-40) H 07/28/21 15:28 ALT 2023 units/L (7-56) H 07/28/21 15:28 Alkaline Phosphatase 222 units/L (35-129) H 07/28/21 15:28 Total Creatine Kinase 78 units/L (30-135) 07/28/21 15:38 Total Protein 6.4 g/dL (6.3-8.2) 07/28/21 15:28 Albumin 3.5 g/dL (3.9-5) L 07/28/21 15:28 Albumin/Globulin Ratio 1.2 % 07/28/21 15:28 Lipase 51 units/L (13-60) 07/28/21 15:28 Urine Color Yellow (Yellow) 07/28/21 16:34 Urine Turbidity Clear (Clear) 07/28/21 16:34 Urine pH 6.0 (5.0-7.0) 07/28/21 16:34 Ur Specific [place] 1.014 (1.003-1.030) 07/28/21 16:34 Urine Protein <15 mg/dl mg/dL (Negative) 07/28/21 16:34 Urine Glucose (UA) >=500 mg/dL (Negative) 07/28/21 16:34 Urine Ketones Neg mg/dL (Negative) 07/28/21 16:34 Urine Blood Sm (Negative) 07/28/21 16:34 Urine Nitrite Neg (Negative) 07/28/21 16:34 Urine Bilirubin Neg (Negative) 07/28/21 16:34 Urine Urobilinogen < 2.0 mg/dL (<2.0) 07/28/21 16:34 Ur Leukocyte Esterase Neg (Negative) 07/28/21 16:34 Urine WBC (Auto) < 1.0 /HPF (0.0-6.0) 07/28/21 16:34 Urine RBC (Auto) < 1.0 /HPF (0.0-6.0) 07/28/21 16:34 U Epithel Cells (Auto) 1.0 /HPF (0-13.0) 07/28/21 16:34 Acetaminophen 5.0 ug/mL (10.0-30.0) L 07/28/21 15:38 Hepatitis A IgM Ab Reactive (NonReactive) A 07/28/21 15:38 Hep Bs Antigen Non-reactive (Negative) 07/28/21 15:38 Hep B Core IgM Ab Non-reactive (NonReactive) 07/28/21 15:38 Hepatitis C Antibody Non-reactive (NonReactive) 07/28/21 15:38 [place]/IV: Voiding Method Toilet Active Medications - Current Medications Current Medications: Generic Name Dose Route Start Last Admin Trade Name Freq PRN Reason Stop Dose Admin Albuterol 2.5 mg 07/28/21 18:10 Albuterol 2.5 Mg/3 Ml Nebu IH Q4HRT PRN Shortness Of Breath Amlodipine Besylate 5 mg 07/29/21 10:00 Amlodipine 5 Mg Tab PO QDAY MARTITA Cyclobenzaprine HCl 10 mg 07/28/21 18:12 07/28/21 19:03 Cyclobenzaprine 10 Mg Tab PO 10 mg QHS PRN Administration Muscle Spasm Hydromorphone HCl 0.5 mg 07/28/21 18:10 Hydromorphone 1 Mg/1 Ml Inj IV Q12H PRN Pain , Severe (7-10) Ibuprofen 600 mg 07/28/21 18:10 Ibuprofen 600 Mg Tab PO Q6H PRN Pain, Mild (1-3) Morphine Sulfate 2 mg 07/28/21 18:10 07/28/21 20:05 Morphine 2 Mg/1 Ml Inj IV 2 mg Q8H PRN Administration Pain, Moderate (4-6) Ondansetron HCl 4 mg 07/28/21 18:10 07/28/21 19:03 Ondansetron 4 Mg/2 Ml Inj IV 4 mg Q8H PRN Administration Nausea And Vomiting Sodium Chloride 10 ml 07/28/21 22:00 07/28/21 23:03 Sodium Chloride 0.9% 10 Ml Flush Syringe IV 10 ml BID MARTITA Administration Sodium Chloride 10 ml 07/28/21 18:10 Sodium Chloride 0.9% 10 Ml Flush Syringe IV PRN PRN LINE FLUSH
[2021-07-29 08:56] LABS: Calcium 9.1 mg/dL (8.4-10.2)
[2021-07-29] MEDS: MORPHINE 2 MG/1 ML INJ IV PRN ×2 (09:16→17:00)
[2021-07-29] MEDS: amLODIPine 5 MG TAB PO SCH (09:18)
[2021-07-29] MEDS ORDERED: CYANOCOBALAMIN 250 MCG PO SCH (14:15)
[2021-07-29] MEDS ORDERED: IBUPROFEN 600 MG TAB PO PRN (14:36)
--- NOTE | 2021-07-29 14:42 | Gastroenterology Consultation ---
History of Present Illness - Reason for Consult Consult date: 07/29/21 Abnormal liver enzymes Requesting physician: ALEJANDRA ALBRECHT - History of Present Illness The patient is a 61 yo female admitted with acute hepatitis. She is positive for HAV IgM on admit. She has no hx of viral hepatitis, and no chronic GI complaints. She denies prior abnormal liver enzymes at her PCP. She is on a new medication (Invokana) for the past 2-3 months, but no others. She has not taken tylenol recently (uses motrin for pain). She does drink EtOH about 2-3 x per week, but only 1-2 glasses. She has no hx of EtOH abuse. She has no family hx of liver disease/cirrhosis. The patient has no N/V but does have fatigue and malaise with myalgias. Mild diarrhea which has resolved and was nonbloody. Past History Past Medical History: diabetes, hypertension, hyperlipidemia, hypothyroidism, other (See HPI) Past Surgical History: No surgical history Social history: , smoking. denies: alcohol abuse, prescription drug abuse Family history: diabetes, hypertension Medications and Allergies Allergies Allergy/AdvReac Type Severity Reaction Status Date / Time tramadol Allergy Intermediate Itching Verified 07/28/21 19:58 tetracycline [Tetracycline] Allergy Rash, Verified 07/29/21 10:06 itching Home Medications Medication Instructions Recorded Confirmed Last Taken Type Canagliflozin [Invokana] 100 mg PO QAM 07/28/21 07/29/21 07/28/21 History 100 mg Levothyroxine [Synthroid] 100 mcg PO QAM 07/28/21 07/29/21 07/28/21 History 100 mcg Losartan [Cozaar] 100 mg PO QDAY 07/28/21 07/29/21 07/28/21 History 100 mg Metoprolol [Lopressor TAB] 50 mg PO BID 07/28/21 07/29/21 07/28/21 08:00 History 50 mg Aspirin EC [Halfprin EC] 81 mg PO QDAY 07/29/21 07/29/21 07/28/21 History Cyanocobalamin (Vitamin B-12) 250 mcg PO DAILY 07/29/21 07/29/21 07/28/21 History [Vitamin B-12] Fenofibrate 160 mg PO QPM 07/29/21 07/29/21 07/28/21 History Fluticasone [Flonase] 1 spray NS QDAY 07/29/21 07/29/21 07/28/21 History Active Meds: Active Medications Albuterol (Albuterol 2.5 Mg/3 Ml Nebu) 2.5 mg IH Q4HRT PRN PRN Reason: Shortness Of Breath Amlodipine Besylate (Amlodipine 5 Mg Tab) 5 mg PO QDAY [facility] Last Admin: 07/29/21 09:18 Dose: 5 mg Aspirin (Aspirin Ec 81 Mg Tab) 81 mg PO QDAY [facility] Cyanocobalamin (Cyanocobalamin (Vit B-12) 100 Mcg Tab) 250 mcg PO QDAY [facility] Cyclobenzaprine HCl (Cyclobenzaprine 10 Mg Tab) 10 mg PO QHS PRN PRN Reason: Muscle Spasm Last Admin: 07/28/21 19:03 Dose: 10 mg Fenofibrate (Fenofibrate 145 Mg Tab) 145 mg PO QPM [facility] Fluticasone Propionate (Fluticasone Propionate Nasal [place] 16 Gm) 50 mcg NS QDAY [facility] Hydromorphone HCl (Hydromorphone 1 Mg/1 Ml Inj) 0.5 mg IV Q12H PRN PRN Reason: Pain , Severe (7-10) Sodium Chloride (Nacl 0.9% 1000 Ml) 1,000 mls @ 100 mls/hr IV DIRECT [facility] Levothyroxine Sodium (Levothyroxine 100 Mcg Tab) 100 mcg PO DAILY@0600 [facility] Metoprolol Tartrate (Metoprolol Tartrate 50 Mg Tab) 50 mg PO BID [facility] Morphine Sulfate (Morphine 2 Mg/1 Ml Inj) 2 mg IV Q8H PRN PRN Reason: Pain, Moderate (4-6) Last Admin: 07/29/21 09:16 Dose: 2 mg Ondansetron HCl (Ondansetron 4 Mg/2 Ml Inj) 4 mg IV Q8H PRN PRN Reason: Nausea And Vomiting Last Admin: 07/28/21 19:03 Dose: 4 mg Sodium Chloride (Sodium Chloride 0.9% 10 Ml Flush Syringe) 10 ml IV BID [facility] Last Admin: 07/29/21 09:18 Dose: 10 ml Sodium Chloride (Sodium Chloride 0.9% 10 Ml Flush Syringe) 10 ml IV PRN PRN PRN Reason: LINE FLUSH I HAVE REVIEWED/RECONCILED MEDICATIONS Review of Systems - Review of Systems All systems: negative (as noted in the HPI) Exam - Constitutional Vital Signs: Temp Pulse Resp BP Pulse Ox 98.2 F 71 20 160/91 93 07/29/21 12:44 07/29/21 12:44 07/29/21 12:44 07/29/21 12:44 07/29/21 12:44 General appearance: no acute distress - EENT Eyes: PERRL, EOM intact ENT: hearing intact, clear oral mucosa, poor dentition - Neck Neck: supple, normal ROM - Respiratory Respiratory effort: normal Respiratory: bilateral: CTA - Cardiovascular Rhythm: regular Heart Sounds: Present: S1 & S2 Extremities: no ischemia, No edema - Gastrointestinal General gastrointestinal: Present: soft, non-tender, non-distended - Integumentary Integumentary: Present: clear, warm, dry - Neurologic Neurological: alert and oriented x3 - Labs CBC & Chem 7: 07/28/21 17:44 07/29/21 06:44 Lab Results: Laboratory Results - last 24 hr 07/28/21 07/28/21 07/28/21 14:16 15:28 15:28 WBC 2.0 L RBC 4.94 Hgb 15.9 H Hct 48.4 H MCV 98 H MCH 32 MCHC 33 RDW 15.1 Plt Count 116 L Add Manual Diff Total Counted Seg Neuts % (Manual) Band Neutrophils % Lymphocytes % (Manual) Reactive Lymphs % (Man) Monocytes % (Manual) Eosinophils % (Manual) Basophils % (Manual) Metamyelocytes % Myelocytes % Promyelocytes % Blast Cells % Nucleated RBC % Seg Neutrophils # Man Band Neutrophils # Lymphocytes # (Manual) Abs React Lymphs (Man) Monocytes # (Manual) Eosinophils # (Manual) Basophils # (Manual) Metamyelocytes # Myelocytes # Promyelocytes # Blast Cells # WBC Morphology Hypersegmented Neuts Hyposegmented Neuts Hypogranular Neuts Smudge Cells Toxic Granulation Toxic Vacuolation Dohle Bodies Pelger-Huet Anomaly Deepak Rods Platelet Estimate Clumped Platelets Plt Clumps, EDTA Large Platelets Giant Platelets Platelet Satelliting Plt Morphology Comment RBC Morphology Dimorphic RBCs Polychromasia Hypochromasia Poikilocytosis Anisocytosis Microcytosis Macrocytosis Spherocytes Pappenheimer Bodies Sickle Cells Target Cells Tear Drop Cells Ovalocytes Helmet Cells [place] Bodies [place] Rings [place] Cells Bite Cells Crenated Cell Elliptocytes Acanthocytes (Spur) Rouleaux Hemoglobin C Crystals Schistocytes Malaria parasites Santhosh Bodies Hem Pathologist Commnt PT INR APTT Sodium 134 L Potassium 4.6 Chloride 98.6 Carbon Dioxide 23 Anion Gap 17 BUN 21 H Creatinine 1.2 Estimated GFR 46 BUN/Creatinine Ratio 18 Glucose 250 H POC Glucose 288 H Calcium 10.2 Magnesium Total Bilirubin 1.20 AST 1872 H ALT 2023 H Alkaline Phosphatase 222 H Total Creatine Kinase Total Protein 6.4 Albumin 3.5 L Albumin/Globulin Ratio 1.2 Lipase 51 Urine Color Urine Turbidity Urine pH Ur Specific [place] Urine Protein Urine Glucose (UA) Urine Ketones Urine Blood Urine Nitrite Urine Bilirubin Urine Urobilinogen Ur Leukocyte Esterase Urine WBC (Auto) Urine RBC (Auto) U Epithel Cells (Auto) Acetaminophen Hepatitis A IgM Ab Hep Bs Antigen Hep B Core IgM Ab Hepatitis C Antibody 07/28/21 07/28/21 07/28/21 15:38 15:38 15:38 WBC RBC Hgb Hct MCV MCH MCHC RDW Plt Count Add Manual Diff Total Counted Seg Neuts % (Manual) Band Neutrophils % Lymphocytes % (Manual) Reactive Lymphs % (Man) Monocytes % (Manual) Eosinophils % (Manual) Basophils % (Manual) Metamyelocytes % Myelocytes % Promyelocytes % Blast Cells % Nucleated RBC % Seg Neutrophils # Man Band Neutrophils # Lymphocytes # (Manual) Abs React Lymphs (Man) Monocytes # (Manual) Eosinophils # (Manual) Basophils # (Manual) Metamyelocytes # Myelocytes # Promyelocytes # Blast Cells # WBC Morphology Hypersegmented Neuts Hyposegmented Neuts Hypogranular Neuts Smudge Cells Toxic Granulation Toxic Vacuolation Dohle Bodies Pelger-Huet Anomaly Deepak Rods Platelet Estimate Clumped Platelets Plt Clumps, EDTA Large Platelets Giant Platelets Platelet Satelliting Plt Morphology Comment RBC Morphology Dimorphic RBCs Polychromasia Hypochromasia Poikilocytosis Anisocytosis Microcytosis Macrocytosis Spherocytes Pappenheimer Bodies Sickle Cells Target Cells Tear Drop Cells Ovalocytes Helmet Cells [place] Bodies [place] Rings [place] Cells Bite Cells Crenated Cell Elliptocytes Acanthocytes (Spur) Rouleaux Hemoglobin C Crystals Schistocytes Malaria parasites Santhosh Bodies Hem Pathologist Commnt PT INR APTT Sodium Potassium Chloride Carbon Dioxide Anion Gap BUN Creatinine Estimated GFR BUN/Creatinine Ratio Glucose POC Glucose Calcium Magnesium Total Bilirubin AST ALT Alkaline Phosphatase Total Creatine Kinase 78 Total Protein Albumin Albumin/Globulin Ratio Lipase Urine Color Urine Turbidity Urine pH Ur Specific [place] Urine Protein Urine Glucose (UA) Urine Ketones Urine Blood Urine Nitrite Urine Bilirubin Urine Urobilinogen Ur Leukocyte Esterase Urine WBC (Auto) Urine RBC (Auto) U Epithel Cells (Auto) Acetaminophen 5.0 L Hepatitis A IgM Ab Reactive A Hep Bs Antigen Non-reactive Hep B Core IgM Ab Non-reactive Hepatitis C Antibody Non-reactive 07/28/21 07/28/21 07/28/21 16:34 17:44 17:44 WBC 2.1 L RBC 4.77 Hgb 15.9 H Hct 46.7 H MCV 98 H MCH 33 H MCHC 34 RDW 15.1 Plt Count 144 Add Manual Diff Complete Total Counted 100 Seg Neuts % (Manual) 66.0 Band Neutrophils % 0 Lymphocytes % (Manual) 27.0 Reactive Lymphs % (Man) 0 Monocytes % (Manual) 7.0 Eosinophils % (Manual) 0 Basophils % (Manual) 0 Metamyelocytes % 0 Myelocytes % 0 Promyelocytes % 0 Blast Cells % 0 Nucleated RBC % Not Reportable Seg Neutrophils # Man 1.4 L Band Neutrophils # 0.0 Lymphocytes # (Manual) 0.6 L Abs React Lymphs (Man) 0.0 Monocytes # (Manual) 0.1 Eosinophils # (Manual) 0.0 Basophils # (Manual) 0.0 Metamyelocytes # 0.0 Myelocytes # 0.0 Promyelocytes # 0.0 Blast Cells # 0.0 WBC Morphology Not Reportable Hypersegmented Neuts Not Reportable Hyposegmented Neuts Not Reportable Hypogranular Neuts Not Reportable Smudge Cells Not Reportable Toxic Granulation Not Reportable Toxic Vacuolation Not Reportable Dohle Bodies Not Reportable Pelger-Huet Anomaly Not Reportable Deepak Rods Not Reportable Platelet Estimate Consistent w auto Clumped Platelets Not Reportable Plt Clumps, EDTA Not Reportable Large Platelets Not Reportable Giant Platelets Few Platelet Satelliting Not Reportable Plt Morphology Comment Not Reportable RBC Morphology Normal Dimorphic RBCs Not Reportable Polychromasia Not Reportable Hypochromasia Not Reportable Poikilocytosis Not Reportable Anisocytosis Not Reportable Microcytosis Not Reportable Macrocytosis Not Reportable Spherocytes Not Reportable Pappenheimer Bodies Not Reportable Sickle Cells Not Reportable Target Cells Not Reportable Tear Drop Cells Not Reportable Ovalocytes Not Reportable Helmet Cells Not Reportable [place] Bodies Not Reportable [place] Rings Not Reportable [place] Cells Not Reportable Bite Cells Not Reportable Crenated Cell Not Reportable Elliptocytes Not Reportable Acanthocytes (Spur) Not Reportable Rouleaux Not Reportable Hemoglobin C Crystals Not Reportable Schistocytes Not Reportable Malaria parasites Not Reportable Santhosh Bodies Not Reportable Hem Pathologist Commnt No PT 13.7 INR 0.95 APTT 27.2 Sodium Potassium Chloride Carbon Dioxide Anion Gap BUN Creatinine Estimated GFR BUN/Creatinine Ratio Glucose POC Glucose Calcium Magnesium Total Bilirubin AST ALT Alkaline Phosphatase Total Creatine Kinase Total Protein Albumin Albumin/Globulin Ratio Lipase Urine Color Yellow Urine Turbidity Clear Urine pH 6.0 Ur Specific [place] 1.014 Urine Protein <15 mg/dl Urine Glucose (UA) >=500 Urine Ketones Neg Urine Blood Sm Urine Nitrite Neg Urine Bilirubin Neg Urine Urobilinogen < 2.0 Ur Leukocyte Esterase Neg Urine WBC (Auto) < 1.0 Urine RBC (Auto) < 1.0 U Epithel Cells (Auto) 1.0 Acetaminophen Hepatitis A IgM Ab Hep Bs Antigen Hep B Core IgM Ab Hepatitis C Antibody 07/28/21 07/28/21 07/29/21 17:44 18:48 06:44 WBC RBC Hgb Hct MCV MCH MCHC RDW Plt Count Add Manual Diff Total Counted Seg Neuts % (Manual) Band Neutrophils % Lymphocytes % (Manual) Reactive Lymphs % (Man) Monocytes % (Manual) Eosinophils % (Manual) Basophils % (Manual) Metamyelocytes % Myelocytes % Promyelocytes % Blast Cells % Nucleated RBC % Seg Neutrophils # Man Band Neutrophils # Lymphocytes # (Manual) Abs React Lymphs (Man) Monocytes # (Manual) Eosinophils # (Manual) Basophils # (Manual) Metamyelocytes # Myelocytes # Promyelocytes # Blast Cells # WBC Morphology Hypersegmented Neuts Hyposegmented Neuts Hypogranular Neuts Smudge Cells Toxic Granulation Toxic Vacuolation Dohle Bodies Pelger-Huet Anomaly Deepak Rods Platelet Estimate Clumped Platelets Plt Clumps, EDTA Large Platelets Giant Platelets Platelet Satelliting Plt Morphology Comment RBC Morphology Dimorphic RBCs Polychromasia Hypochromasia Poikilocytosis Anisocytosis Microcytosis Macrocytosis Spherocytes Pappenheimer Bodies Sickle Cells Target Cells Tear Drop Cells Ovalocytes Helmet Cells [place] Bodies [place] Rings [place] Cells Bite Cells Crenated Cell Elliptocytes Acanthocytes (Spur) Rouleaux Hemoglobin C Crystals Schistocytes Malaria parasites Santhosh Bodies Hem Pathologist Commnt PT INR APTT Sodium 132 L Potassium 4.1 Chloride 98.4 Carbon Dioxide 23 Anion Gap 15 BUN 17 Creatinine 1.1 Estimated GFR 51 BUN/Creatinine Ratio 15 Glucose 174 H POC Glucose 175 H Calcium 9.1 Magnesium 2.00 Total Bilirubin 1.70 H AST 2698 H ALT 2724 H Alkaline Phosphatase 208 H Total Creatine Kinase Total Protein 6.2 L Albumin 3.0 L Albumin/Globulin Ratio 0.9 Lipase Urine Color Urine Turbidity Urine pH Ur Specific [place] Urine Protein Urine Glucose (UA) Urine Ketones Urine Blood Urine Nitrite Urine Bilirubin Urine Urobilinogen Ur Leukocyte Esterase Urine WBC (Auto) Urine RBC (Auto) U Epithel Cells (Auto) Acetaminophen Hepatitis A IgM Ab Hep Bs Antigen Hep B Core IgM Ab Hepatitis C Antibody Assessment and Plan 1. Acute hepatitis - Positive IgM for Hep A but can be false positive - Agree with RAMANA check - Will continue MVI and Regular diet since INR is normal and no vomiting - OK to discharge tomorrow if LFTs improve (as they should in 1-2 days if only Hep A) - Avoid tylenol at present - Will add protonix and MVI since on ibuprofen daily
[2021-07-29] MEDS: PANTOPRAZOLE 40 MG TAB PO SCH (17:00)
[2021-07-29] MEDS: SODIUM CHLORIDE 0.9% 1000 ML 1,000 ML IV SCH (17:02)
[2021-07-29] MEDS ORDERED: NON-FORMULARY EACH (Fenofibrate [Fenofibrate] 160 MG Tablet) PO SCH (18:00)
[2021-07-29] MEDS ORDERED: FENOFIBRATE 145 MG TAB PO SCH (18:00)
[2021-07-29] MEDS: METOPROLOL TARTRATE 50 MG TAB PO SCH (21:18)
[2021-07-30] MEDS: LEVOTHYROXINE 100 MCG TAB PO SCH (05:37)
[2021-07-30] MEDS: SODIUM CHLORIDE 0.9% 1000 ML 1,000 ML IV SCH ×2 (05:38→17:29)
[2021-07-30 06:08] LABS: Albumin 2.6 g/dL (3.9-5); Calcium 8.1 mg/dL (8.4-10.2)
[2021-07-30 06:12] LABS: INR 1.03 (0.87-1.13)
[2021-07-30] MEDS: PANTOPRAZOLE 40 MG TAB PO SCH (08:30)
[2021-07-30] MEDS: FLUTICASONE PROPIONATE NASAL SPRAY 16 GM NS SCH (09:43)
[2021-07-30] MEDS: CYANOCOBALAMIN (VIT B-12) 100 MCG TAB PO SCH (09:44)
[2021-07-30] MEDS: ASPIRIN EC 81 MG TAB PO SCH (09:44)
[2021-07-30] MEDS: MULTIVITAMINS ,THERAPEUTIC TAB PO SCH (09:44)
[2021-07-30] MEDS: amLODIPine 5 MG TAB PO SCH (09:44)
[2021-07-30] MEDS: METOPROLOL TARTRATE 50 MG TAB PO SCH ×2 (09:48→21:13)
--- NOTE | 2021-07-30 12:31 | Progress Note ---
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 Patient expresses understanding. - Time: +15 min #Hypertension - continue amlodipine - metoprolol restarted at home dose #Advance care planning -Disease education conducted, care plan discussed, diagnoses discussed, prognosis discussed, patient is full code. Patient acknowledges understanding and agreement with care plan, +30 minutes. History Interval history: No acute events overnight. Patient reports feeling better. She denies abdominal pain, nausea and vomiting. No other complaints at this time. Hospitalist Physical - Physical exam Narrative exam: GENERAL: Obese. Sitting in the chair, in no acute distress. HEENT: Normocephalic. Atraumatic. No scleral icterus noted. NECK: Supple. CHEST/LUNGS: CTAB on room air HEART/CARDIOVASCULAR: RRR. No murmur, rubs or gallops appreciated. ABDOMEN: +BS. NT/ND. NEURO: No focal motor deficit. Follows all commands. MUSCULOSKELETAL: No joint effusion EXTREMITIES: No cyanosis, clubbing or edema. PSYCH: Cooperative. - Constitutional Vitals: Temp Pulse Resp BP Pulse Ox 98.8 F 65 18 132/78 94 07/30/21 00:13 07/30/21 09:48 07/30/21 00:13 07/30/21 09:48 07/30/21 09:22 General appearance: Present: mild distress, obese Results - Labs CBC & Chem 7: 07/28/21 17:44 07/30/21 04:53 Labs: Laboratory Last Values WBC 2.1 K/mm3 (4.5-11.0) L 07/28/21 17:44 RBC 4.77 M/mm3 (3.65-5.03) 07/28/21 17:44 Hgb 15.9 gm/dl (10.1-14.3) H 07/28/21 17:44 Hct 46.7 % (30.3-42.9) H 07/28/21 17:44 MCV 98 fl (79-97) H 07/28/21 17:44 MCH 33 pg (28-32) H 07/28/21 17:44 MCHC 34 % (30-34) 07/28/21 17:44 RDW 15.1 % (13.2-15.2) 07/28/21 17:44 Plt Count 144 K/mm3 (140-440) 07/28/21 17:44 Add Manual Diff Complete 07/28/21 17:44 Total Counted 100 07/28/21 17:44 Seg Neuts % (Manual) 66.0 % (40.0-70.0) 07/28/21 17:44 Band Neutrophils % 0 % 07/28/21 17:44 Lymphocytes % (Manual) 27.0 % (13.4-35.0) 07/28/21 17:44 Reactive Lymphs % (Man) 0 % 07/28/21 17:44 Monocytes % (Manual) 7.0 % (0.0-7.3) 07/28/21 17:44 Eosinophils % (Manual) 0 % (0.0-4.3) 07/28/21 17:44 Basophils % (Manual) 0 % (0.0-1.8) 07/28/21 17:44 Metamyelocytes % 0 % 07/28/21 17:44 Myelocytes % 0 % 07/28/21 17:44 Promyelocytes % 0 % 07/28/21 17:44 Blast Cells % 0 % 07/28/21 17:44 Nucleated RBC % Not Reportable 07/28/21 17:44 Seg Neutrophils # Man 1.4 K/mm3 (1.8-7.7) L 07/28/21 17:44 Band Neutrophils # 0.0 K/mm3 07/28/21 17:44 Lymphocytes # (Manual) 0.6 K/mm3 (1.2-5.4) L 07/28/21 17:44 Abs React Lymphs (Man) 0.0 K/mm3 07/28/21 17:44 Monocytes # (Manual) 0.1 K/mm3 (0.0-0.8) 07/28/21 17:44 Eosinophils # (Manual) 0.0 K/mm3 (0.0-0.4) 07/28/21 17:44 Basophils # (Manual) 0.0 K/mm3 (0.0-0.1) 07/28/21 17:44 Metamyelocytes # 0.0 K/mm3 07/28/21 17:44 Myelocytes # 0.0 K/mm3 07/28/21 17:44 Promyelocytes # 0.0 K/mm3 07/28/21 17:44 Blast Cells # 0.0 K/mm3 07/28/21 17:44 WBC Morphology Not Reportable 07/28/21 17:44 Hypersegmented Neuts Not Reportable 07/28/21 17:44 Hyposegmented Neuts Not Reportable 07/28/21 17:44 Hypogranular Neuts Not Reportable 07/28/21 17:44 Smudge Cells Not Reportable 07/28/21 17:44 Toxic Granulation Not Reportable 07/28/21 17:44 Toxic Vacuolation Not Reportable 07/28/21 17:44 Dohle Bodies Not Reportable 07/28/21 17:44 Pelger-Huet Anomaly Not Reportable 07/28/21 17:44 Deepak Rods Not Reportable 07/28/21 17:44 Platelet Estimate Consistent w auto 07/28/21 17:44 Clumped Platelets Not Reportable 07/28/21 17:44 Plt Clumps, EDTA Not Reportable 07/28/21 17:44 Large Platelets Not Reportable 07/28/21 17:44 Giant Platelets Few 07/28/21 17:44 Platelet Satelliting Not Reportable 07/28/21 17:44 Plt Morphology Comment Not Reportable 07/28/21 17:44 RBC Morphology Normal 07/28/21 17:44 Dimorphic RBCs Not Reportable 07/28/21 17:44 Polychromasia Not Reportable 07/28/21 17:44 Hypochromasia Not Reportable 07/28/21 17:44 Poikilocytosis Not Reportable 07/28/21 17:44 Anisocytosis Not Reportable 07/28/21 17:44 Microcytosis Not Reportable 07/28/21 17:44 Macrocytosis Not Reportable 07/28/21 17:44 Spherocytes Not Reportable 07/28/21 17:44 Pappenheimer Bodies Not Reportable 07/28/21 17:44 Sickle Cells Not Reportable 07/28/21 17:44 Target Cells Not Reportable 07/28/21 17:44 Tear Drop Cells Not Reportable 07/28/21 17:44 Ovalocytes Not Reportable 07/28/21 17:44 Helmet Cells Not Reportable 07/28/21 17:[address] [place] Bodies Not Reportable 07/28/21 17:44 [place] Rings Not Reportable 07/28/21 17:44 [place] Cells Not Reportable 07/28/21 17:44 Bite Cells Not Reportable 07/28/21 17:44 Crenated Cell Not Reportable 07/28/21 17:44 Elliptocytes Not Reportable 07/28/21 17:44 Acanthocytes (Spur) Not Reportable 07/28/21 17:44 Rouleaux Not Reportable 07/28/21 17:44 Hemoglobin C Crystals Not Reportable 07/28/21 17:44 Schistocytes Not Reportable 07/28/21 17:44 Malaria parasites Not Reportable 07/28/21 17:44 Santhosh Bodies Not Reportable 07/28/21 17:44 Hem Pathologist Commnt No 07/28/21 17:44 PT 14.6 Sec. (12.2-14.9) 07/30/21 04:53 INR 1.03 (0.87-1.13) 07/30/21 04:53 APTT 27.2 Sec. (24.2-36.6) 07/28/21 17:44 Sodium 133 mmol/L (137-145) L 07/30/21 04:53 Potassium 3.9 mmol/L (3.6-5.0) 07/30/21 04:53 Chloride 100.8 mmol/L (98-107) 07/30/21 04:53 Carbon Dioxide 21 mmol/L (22-30) L 07/30/21 04:53 Anion Gap 15 mmol/L 07/30/21 04:53 BUN 17 mg/dL (7-17) 07/30/21 04:53 Creatinine 1.2 mg/dL (0.6-1.2) 07/30/21 04:53 Estimated GFR 46 ml/min 07/30/21 04:53 BUN/Creatinine Ratio 14 % 07/30/21 04:53 Glucose 156 mg/dL (65-100) H 07/30/21 04:53 POC Glucose 175 mg/dL (70-105) H 07/28/21 18:48 Calcium 8.1 mg/dL (8.4-10.2) L 07/30/21 04:53 Magnesium 2.00 mg/dL (1.7-2.3) 07/28/21 17:44 Total Bilirubin 3.20 mg/dL (0.1-1.2) H 07/30/21 04:53 AST 3779 units/L (5-40) H 07/30/21 04:53 ALT 3873 units/L (7-56) H 07/30/21 04:53 Alkaline Phosphatase 212 units/L (35-129) H 07/30/21 04:53 Total Creatine Kinase 78 units/L (30-135) 07/28/21 15:38 Total Protein 5.9 g/dL (6.3-8.2) L 07/30/21 04:53 Albumin 2.6 g/dL (3.9-5) L 07/30/21 04:53 Albumin/Globulin Ratio 0.8 % 07/30/21 04:53 Lipase 51 units/L (13-60) 07/28/21 15:28 Urine Color Yellow (Yellow) 07/28/21 16:34 Urine Turbidity Clear (Clear) 07/28/21 16:34 Urine pH 6.0 (5.0-7.0) 07/28/21 16:34 Ur Specific [place] 1.014 (1.003-1.030) 07/28/21 16:34 Urine Protein <15 mg/dl mg/dL (Negative) 07/28/21 16:34 Urine Glucose (UA) >=500 mg/dL (Negative) 07/28/21 16:34 Urine Ketones Neg mg/dL (Negative) 07/28/21 16:34 Urine Blood Sm (Negative) 07/28/21 16:34 Urine Nitrite Neg (Negative) 07/28/21 16:34 Urine Bilirubin Neg (Negative) 07/28/21 16:34 Urine Urobilinogen < 2.0 mg/dL (<2.0) 07/28/21 16:34 Ur Leukocyte Esterase Neg (Negative) 07/28/21 16:34 Urine WBC (Auto) < 1.0 /HPF (0.0-6.0) 07/28/21 16:34 Urine RBC (Auto) < 1.0 /HPF (0.0-6.0) 07/28/21 16:34 U Epithel Cells (Auto) 1.0 /HPF (0-13.0) 07/28/21 16:34 Acetaminophen 5.0 ug/mL (10.0-30.0) L 07/28/21 15:38 Hepatitis A IgM Ab Reactive (NonReactive) A 07/28/21 15:38 Hep Bs Antigen Non-reactive (Negative) 07/28/21 15:38 Hep B Core IgM Ab Non-reactive (NonReactive) 07/28/21 15:38 Hepatitis C Antibody Non-reactive (NonReactive) 07/28/21 15:38 [place]/IV: Voiding Method Toilet Active Medications - Current Medications Current Medications: Generic Name Dose Route Start Last Admin Trade Name Freq PRN Reason Stop Dose Admin Albuterol 2.5 mg 07/28/21 18:10 Albuterol 2.5 Mg/3 Ml Nebu IH Q4HRT PRN Shortness Of Breath Amlodipine Besylate 5 mg 07/29/21 10:00 07/30/21 09:44 Amlodipine 5 Mg Tab PO 5 mg QDAY MARTITA Administration Aspirin 81 mg 07/30/21 10:00 07/30/21 09:44 Aspirin Ec 81 Mg Tab PO 81 mg QDAY MARTITA Administration Cyanocobalamin 250 mcg 07/30/21 10:00 07/30/21 09:44 Cyanocobalamin (Vit B-12) 100 Mcg Tab PO 250 mcg QDAY MARTITA Administration Cyclobenzaprine HCl 10 mg 07/28/21 18:12 07/28/21 19:03 Cyclobenzaprine 10 Mg Tab PO 10 mg QHS PRN Administration Muscle Spasm Fluticasone Propionate 50 mcg 07/30/21 10:00 07/30/21 09:43 Fluticasone Propionate Nasal [place] 16 Gm NS 50 mcg QDAY MARTITA Administration Hydromorphone HCl 0.5 mg 07/28/21 18:10 Hydromorphone 1 Mg/1 Ml Inj IV Q12H PRN Pain , Severe (7-10) Sodium Chloride 1,000 mls @ 100 mls/hr 07/29/21 13:30 07/30/21 05:38 Nacl 0.9% 1000 Ml IV 100 mls/hr DIRECT MARTITA Administration Ibuprofen 400 mg 07/29/21 14:36 Ibuprofen 600 Mg Tab PO Q6H PRN Pain, Mild (1-3) Levothyroxine Sodium 100 mcg 07/30/21 06:00 07/30/21 05:37 Levothyroxine 100 Mcg Tab PO 100 mcg DAILY@0600 MARTITA Administration Metoprolol Tartrate 50 mg 07/29/21 22:00 07/30/21 09:48 Metoprolol Tartrate 50 Mg Tab PO 50 mg BID MARTITA Administration Morphine Sulfate 2 mg 07/28/21 18:10 07/29/21 17:00 Morphine 2 Mg/1 Ml Inj IV 2 mg Q8H PRN Administration Pain, Moderate (4-6) Multivitamins 1 each 07/30/21 10:00 07/30/21 09:44 Multivitamins ,Therapeutic Tab PO 1 each QDAY MARTITA Administration Ondansetron HCl 4 mg 07/28/21 18:10 07/28/21 19:03 Ondansetron 4 Mg/2 Ml Inj IV 4 mg Q8H PRN Administration Nausea And Vomiting Pantoprazole Sodium 40 mg 07/29/21 16:00 07/30/21 08:30 Pantoprazole 40 Mg Tab PO 40 mg QDAC MARTITA Administration Sodium Chloride 10 ml 07/28/21 22:00 07/30/21 09:49 Sodium Chloride 0.9% 10 Ml Flush Syringe IV 10 ml BID MARTITA Administration Sodium Chloride 10 ml 07/28/21 18:10 Sodium Chloride 0.9% 10 Ml Flush Syringe IV PRN PRN LINE FLUSH
--- NOTE | 2021-07-30 17:21 | Gastroenterology Progress Note ---
Assessment and Plan 1. Acute hepatitis - Positive IgM for Hep A but can be false positive - Agree with RAMANA check - Will continue MVI and Regular diet since INR is normal and no vomiting - OK to discharge tomorrow if LFTs improve (as they should in 1-2 days if only Hep A) - Avoid tylenol at present - Will continue protonix and MVI since on ibuprofen daily Subjective Date of service: 07/30/21 Interval history: The patient has done well today with minimal nausea and no severe pain. No itch ing, but her urine is still dark orange. Objective - Constitutional Vitals: Temp Pulse Resp BP Pulse Ox 98.3 F 58 L 22 143/78 98 07/30/21 11:40 07/30/21 11:40 07/30/21 11:40 07/30/21 11:40 07/30/21 11:40 General appearance: no acute distress - Respiratory Respiratory effort: normal Respiratory: bilateral: CTA - Cardiovascular Rhythm: regular Heart Sounds: Present: S1 & S2 - Gastrointestinal General gastrointestinal: Present: soft, non-tender, non-distended - Labs CBC & Chem 7: 07/28/21 17:44 07/30/21 04:53 Labs: Laboratory Results - last 24 hr 07/30/21 07/30/21 07/30/21 04:53 04:53 08:25 PT 14.6 INR 1.03 Sodium 133 L Potassium 3.9 Chloride 100.8 Carbon Dioxide 21 L Anion Gap 15 BUN 17 Creatinine 1.2 Estimated GFR 46 BUN/Creatinine Ratio 14 Glucose 156 H Calcium 8.1 L Total Bilirubin 3.20 H AST 3779 H ALT 3873 H Alkaline Phosphatase 212 H Total Protein 5.9 L Albumin 2.6 L Albumin/Globulin Ratio 0.8 Coronavirus (PCR) Negative
[2021-07-31] MEDS: SODIUM CHLORIDE 0.9% 1000 ML 1,000 ML IV SCH (03:42)
[2021-07-31] MEDS: PANTOPRAZOLE 40 MG TAB PO SCH (06:44)
[2021-07-31] MEDS: LEVOTHYROXINE 100 MCG TAB PO SCH (06:44)
[2021-07-31] MEDS: MORPHINE 2 MG/1 ML INJ IV PRN (06:44)
[2021-07-31 07:25] LABS: INR 1.03 (0.87-1.13)
[2021-07-31 07:36] LABS: Albumin 2.7 g/dL (3.9-5); Blood Urea Nitrogen 14 mg/dL (7-17); Calcium 8.3 mg/dL (8.4-10.2); Hemolysis Index 48
[2021-07-31 07:37] LABS: BUN/Creatinine Ratio 20
[2021-07-31 07:50] LABS: Alanine Aminotransferase 5225 units/L (7-56)
[2021-07-31] MEDS ORDERED: IBUPROFEN 400 MG TAB PO PRN (10:00)
[2021-07-31] MEDS: CYANOCOBALAMIN (VIT B-12) 100 MCG TAB PO SCH (10:20)
[2021-07-31] MEDS: FLUTICASONE PROPIONATE NASAL SPRAY 16 GM NS SCH (10:20)
[2021-07-31] MEDS: ASPIRIN EC 81 MG TAB PO SCH (10:20)
[2021-07-31] MEDS: MULTIVITAMINS ,THERAPEUTIC TAB PO SCH (10:21)
[2021-07-31] MEDS: METOPROLOL TARTRATE 50 MG TAB PO SCH ×2 (10:22→23:00)
[2021-07-31] MEDS: amLODIPine 5 MG TAB PO SCH (10:22)
--- NOTE | 2021-07-31 12:12 | Progress Note ---
Assessment and Plan Assessment and plan: #Acute hepatitis #Hepatitis A infection -Hepatitis A IgM positive; patient with no known risk factors -discussed prophylaxis for household members -abdominal CT and US without acute findings -continue to trend liver enzymes, currently uptrending -repeat CMP, INR and ordered total/direct bilirubin -supportive care; RAMANA ordered -GI consulted, recs appreciated #Hypovolemic hyponatremia -stable -no evidence of cirrhosis on imaging -will continue to monitor #Type II Diabetes mellitus - takes invokana at home; will hold - continue SSI + accuchecks while inpatient - consistent carb diet #Obesity - Counseled patient on the importance of weight loss, incorporating exercise, and dietary changes (lean meats, fresh fruits and vegetables, and water intake). Patient expresses understanding. - Time: +15 min #Hypertension - continue amlodipine and metoprolol. #Advance care planning -Disease education conducted, care plan discussed, diagnoses discussed, prognosis discussed, patient is full code. Patient acknowledges understanding and agreement with care plan, +30 minutes. History Interval history: No acute events overnight. Patient reports constipation. Denies abdominal pain, nausea, vomiting. Reports that her urine is now yellow and clear. No other complaints at this time. Hospitalist Physical - Physical exam Narrative exam: GENERAL: Obese. Sitting in the chair, in no acute distress. HEENT: Normocephalic. Atraumatic. mild scleral icterus noted. NECK: Supple. CHEST/LUNGS: CTAB on room air HEART/CARDIOVASCULAR: RRR. No murmur, rubs or gallops appreciated. ABDOMEN: +BS. NT/ND. NEURO: No focal motor deficit. Follows all commands. MUSCULOSKELETAL: No joint effusion EXTREMITIES: No cyanosis, clubbing or edema. PSYCH: Cooperative. - Constitutional Vitals: Temp Pulse Resp BP Pulse Ox 97.9 F 60 18 131/68 96 07/31/21 06:42 07/31/21 10:22 07/31/21 06:42 07/31/21 10:22 07/31/21 06:42 General appearance: Present: mild distress, obese Results - Labs CBC & Chem 7: 07/28/21 17:44 07/31/21 06:34 Labs: Laboratory Last Values WBC 2.1 K/mm3 (4.5-11.0) L 07/28/21 17:44 RBC 4.77 M/mm3 (3.65-5.03) 07/28/21 17:44 Hgb 15.9 gm/dl (10.1-14.3) H 07/28/21 17:44 Hct 46.7 % (30.3-42.9) H 07/28/21 17:44 MCV 98 fl (79-97) H 07/28/21 17:44 MCH 33 pg (28-32) H 07/28/21 17:44 MCHC 34 % (30-34) 07/28/21 17:44 RDW 15.1 % (13.2-15.2) 07/28/21 17:44 Plt Count 144 K/mm3 (140-440) 07/28/21 17:44 Add Manual Diff Complete 07/28/21 17:44 Total Counted 100 07/28/21 17:44 Seg Neuts % (Manual) 66.0 % (40.0-70.0) 07/28/21 17:44 Band Neutrophils % 0 % 07/28/21 17:44 Lymphocytes % (Manual) 27.0 % (13.4-35.0) 07/28/21 17:44 Reactive Lymphs % (Man) 0 % 07/28/21 17:44 Monocytes % (Manual) 7.0 % (0.0-7.3) 07/28/21 17:44 Eosinophils % (Manual) 0 % (0.0-4.3) 07/28/21 17:44 Basophils % (Manual) 0 % (0.0-1.8) 07/28/21 17:44 Metamyelocytes % 0 % 07/28/21 17:44 Myelocytes % 0 % 07/28/21 17:44 Promyelocytes % 0 % 07/28/21 17:44 Blast Cells % 0 % 07/28/21 17:44 Nucleated RBC % Not Reportable 07/28/21 17:44 Seg Neutrophils # Man 1.4 K/mm3 (1.8-7.7) L 07/28/21 17:44 Band Neutrophils # 0.0 K/mm3 07/28/21 17:44 Lymphocytes # (Manual) 0.6 K/mm3 (1.2-5.4) L 07/28/21 17:44 Abs React Lymphs (Man) 0.0 K/mm3 07/28/21 17:44 Monocytes # (Manual) 0.1 K/mm3 (0.0-0.8) 07/28/21 17:44 Eosinophils # (Manual) 0.0 K/mm3 (0.0-0.4) 07/28/21 17:44 Basophils # (Manual) 0.0 K/mm3 (0.0-0.1) 07/28/21 17:44 Metamyelocytes # 0.0 K/mm3 07/28/21 17:44 Myelocytes # 0.0 K/mm3 07/28/21 17:44 Promyelocytes # 0.0 K/mm3 07/28/21 17:44 Blast Cells # 0.0 K/mm3 07/28/21 17:44 WBC Morphology Not Reportable 07/28/21 17:44 Hypersegmented Neuts Not Reportable 07/28/21 17:44 Hyposegmented Neuts Not Reportable 07/28/21 17:44 Hypogranular Neuts Not Reportable 07/28/21 17:44 Smudge Cells Not Reportable 07/28/21 17:44 Toxic Granulation Not Reportable 07/28/21 17:44 Toxic Vacuolation Not Reportable 07/28/21 17:44 Dohle Bodies Not Reportable 07/28/21 17:44 Pelger-Huet Anomaly Not Reportable 07/28/21 17:44 Deepak Rods Not Reportable 07/28/21 17:44 Platelet Estimate Consistent w auto 07/28/21 17:44 Clumped Platelets Not Reportable 07/28/21 17:44 Plt Clumps, EDTA Not Reportable 07/28/21 17:44 Large Platelets Not Reportable 07/28/21 17:44 Giant Platelets Few 07/28/21 17:44 Platelet Satelliting Not Reportable 07/28/21 17:44 Plt Morphology Comment Not Reportable 07/28/21 17:44 RBC Morphology Normal 07/28/21 17:44 Dimorphic RBCs Not Reportable 07/28/21 17:44 Polychromasia Not Reportable 07/28/21 17:44 Hypochromasia Not Reportable 07/28/21 17:44 Poikilocytosis Not Reportable 07/28/21 17:44 Anisocytosis Not Reportable 07/28/21 17:44 Microcytosis Not Reportable 07/28/21 17:44 Macrocytosis Not Reportable 07/28/21 17:44 Spherocytes Not Reportable 07/28/21 17:44 Pappenheimer Bodies Not Reportable 07/28/21 17:44 Sickle Cells Not Reportable 07/28/21 17:44 Target Cells Not Reportable 07/28/21 17:44 Tear Drop Cells Not Reportable 07/28/21 17:44 Ovalocytes Not Reportable 07/28/21 17:44 Helmet Cells Not Reportable 07/28/21 17:44 Rodriguez-[place] Bodies Not Reportable 07/28/21 17:44 [place] Rings Not Reportable 07/28/21 17:44 [place] Cells Not Reportable 07/28/21 17:44 Bite Cells Not Reportable 07/28/21 17:44 Crenated Cell Not Reportable 07/28/21 17:44 Elliptocytes Not Reportable 07/28/21 17:44 Acanthocytes (Spur) Not Reportable 07/28/21 17:44 Rouleaux Not Reportable 07/28/21 17:44 Hemoglobin C Crystals Not Reportable 07/28/21 17:44 Schistocytes Not Reportable 07/28/21 17:44 Malaria parasites Not Reportable 07/28/21 17:44 Santhosh Bodies Not Reportable 07/28/21 17:44 Hem Pathologist Commnt No 07/28/21 17:44 PT 14.6 Sec. (12.2-14.9) 07/31/21 06:34 INR 1.03 (0.87-1.13) 07/31/21 06:34 APTT 27.2 Sec. (24.2-36.6) 07/28/21 17:44 Sodium 132 mmol/L (137-145) L 07/31/21 06:34 Potassium 4.6 mmol/L (3.6-5.0) 07/31/21 06:34 Chloride 101.9 mmol/L (98-107) 07/31/21 06:34 Carbon Dioxide 18 mmol/L (22-30) L 07/31/21 06:34 Anion Gap 17 mmol/L 07/31/21 06:34 BUN 14 mg/dL (7-17) 07/31/21 06:34 Creatinine 0.7 mg/dL (0.6-1.2) 07/31/21 06:34 Estimated GFR > 60 ml/min 07/31/21 06:34 BUN/Creatinine Ratio 20 % 07/31/21 06:34 Glucose 160 mg/dL (65-100) H 07/31/21 06:34 POC Glucose 162 mg/dL (70-105) H 07/31/21 05:37 Calcium 8.3 mg/dL (8.4-10.2) L 07/31/21 06:34 Magnesium 2.00 mg/dL (1.7-2.3) 07/28/21 17:44 Total Bilirubin 5.20 mg/dL (0.1-1.2) H 07/31/21 06:34 AST 4348 units/L (5-40) H 07/31/21 06:34 ALT 5225 units/L (7-56) H 07/31/21 06:34 Alkaline Phosphatase 215 units/L (35-129) H 07/31/21 06:34 Total Creatine Kinase 78 units/L (30-135) 07/28/21 15:38 Total Protein 6.3 g/dL (6.3-8.2) 07/31/21 06:34 Albumin 2.7 g/dL (3.9-5) L 07/31/21 06:34 Albumin/Globulin Ratio 0.8 % 07/31/21 06:34 Lipase 51 units/L (13-60) 07/28/21 15:28 Urine Color Yellow (Yellow) 07/28/21 16:34 Urine Turbidity Clear (Clear) 07/28/21 16:34 Urine pH 6.0 (5.0-7.0) 07/28/21 16:34 Ur Specific [place] 1.014 (1.003-1.030) 07/28/21 16:34 Urine Protein <15 mg/dl mg/dL (Negative) 07/28/21 16:34 Urine Glucose (UA) >=500 mg/dL (Negative) 07/28/21 16:34 Urine Ketones Neg mg/dL (Negative) 07/28/21 16:34 Urine Blood Sm (Negative) 07/28/21 16:34 Urine Nitrite Neg (Negative) 07/28/21 16:34 Urine Bilirubin Neg (Negative) 07/28/21 16:34 Urine Urobilinogen < 2.0 mg/dL (<2.0) 07/28/21 16:34 Ur Leukocyte Esterase Neg (Negative) 07/28/21 16:34 Urine WBC (Auto) < 1.0 /HPF (0.0-6.0) 07/28/21 16:34 Urine RBC (Auto) < 1.0 /HPF (0.0-6.0) 07/28/21 16:34 U Epithel Cells (Auto) 1.0 /HPF (0-13.0) 07/28/21 16:34 Acetaminophen 5.0 ug/mL (10.0-30.0) L 07/28/21 15:38 Coronavirus (PCR) Negative (Negative) 07/30/21 08:25 Hepatitis A IgM Ab Reactive (NonReactive) A 07/28/21 15:38 Hep Bs Antigen Non-reactive (Negative) 07/28/21 15:38 Hep B Core IgM Ab Non-reactive (NonReactive) 07/28/21 15:38 Hepatitis C Antibody Non-reactive (NonReactive) 07/28/21 15:38 [place]/IV: Voiding Method Toilet Active Medications - Current Medications Current Medications: Generic Name Dose Route Start Last Admin Trade Name Freq PRN Reason Stop Dose Admin Albuterol 2.5 mg 07/28/21 18:10 Albuterol 2.5 Mg/3 Ml Nebu IH Q4HRT PRN Shortness Of Breath Amlodipine Besylate 5 mg 07/29/21 10:00 07/31/21 10:22 Amlodipine 5 Mg Tab PO 5 mg QDAY MARTITA Administration Aspirin 81 mg 07/30/21 10:00 07/31/21 10:20 Aspirin Ec 81 Mg Tab PO 81 mg QDAY MARTITA Administration Cyanocobalamin 250 mcg 07/30/21 10:00 07/31/21 10:20 Cyanocobalamin (Vit B-12) 100 Mcg Tab PO 250 mcg QDAY MARTITA Administration Cyclobenzaprine HCl 10 mg 07/28/21 18:12 07/28/21 19:03 Cyclobenzaprine 10 Mg Tab PO 10 mg QHS PRN Administration Muscle Spasm Fluticasone Propionate 50 mcg 07/30/21 10:00 07/31/21 10:20 Fluticasone Propionate Nasal [place] 16 Gm NS 50 mcg QDAY MARTITA Administration Hydromorphone HCl 0.5 mg 07/28/21 18:10 07/30/21 20:30 Hydromorphone 1 Mg/1 Ml Inj IV 0.5 mg Q12H PRN Administration Pain , Severe (7-10) Sodium Chloride 1,000 mls @ 100 mls/hr 07/29/21 13:30 07/31/21 03:42 Nacl 0.9% 1000 Ml IV 100 mls/hr DIRECT MARTITA Administration Ibuprofen 400 mg 07/31/21 10:00 Ibuprofen 400 Mg Tab PO Q6H PRN Pain, Mild (1-3) Levothyroxine Sodium 100 mcg 07/30/21 06:00 07/31/21 06:44 Levothyroxine 100 Mcg Tab PO 100 mcg DAILY@0600 MARTITA Administration Metoprolol Tartrate 50 mg 07/29/21 22:00 07/31/21 10:22 Metoprolol Tartrate 50 Mg Tab PO 50 mg BID MARTITA Administration Morphine Sulfate 2 mg 07/28/21 18:10 07/31/21 06:44 Morphine 2 Mg/1 Ml Inj IV 2 mg Q8H PRN Administration Pain, Moderate (4-6) Multivitamins 1 each 07/30/21 10:00 07/31/21 10:21 Multivitamins ,Therapeutic Tab PO 1 each QDAY MARTITA Administration Ondansetron HCl 4 mg 07/28/21 18:10 07/28/21 19:03 Ondansetron 4 Mg/2 Ml Inj IV 4 mg Q8H PRN Administration Nausea And Vomiting Pantoprazole Sodium 40 mg 07/29/21 16:00 07/31/21 06:44 Pantoprazole 40 Mg Tab PO 40 mg QDAC MARTITA Administration Sodium Chloride 10 ml 07/28/21 22:00 07/31/21 10:22 Sodium Chloride 0.9% 10 Ml Flush Syringe IV 10 ml BID MARTITA Administration Sodium Chloride 10 ml 07/28/21 18:10 Sodium Chloride 0.9% 10 Ml Flush Syringe IV PRN PRN LINE FLUSH
[2021-07-31] MEDS ORDERED: POLYETHYLENE GLYCOL 3350 17 GM POWDER PO PRN (13:00)
--- NOTE | 2021-07-31 13:07 | Electrocardiograph Report ---
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
--- NOTE | 2021-07-31 13:56 | Gastroenterology Progress Note ---
Assessment and Plan 1. Acute hepatitis - Positive IgM for Hep A but can be false positive - Agree with RAMANA check (pending) - Will continue MVI and Regular diet since INR is normal and no vomiting - OK to discharge tomorrow when LFTs improve (as they should in 1-2 days if only Hep A) - Avoid tylenol at present - Will continue protonix and MVI since on ibuprofen daily - Of LFTs worsen tomorrow, or INR risking, will start empiric steroids and arrange liver biopsy to check for AIH. Subjective Date of service: 07/31/21 Principal diagnosis: Abnormal LFTs Interval history: The patient is doing well without N/V/abdominal pain. She is tolerating a regular diet. Has had no fevers or chills. Objective - Constitutional Vitals: Temp Pulse Resp BP Pulse Ox 98.4 F 57 L 20 133/75 95 07/31/21 11:00 07/31/21 11:00 07/31/21 11:00 07/31/21 11:00 07/31/21 11:00 General appearance: no acute distress - EENT Eyes: PERRL, EOM intact ENT: hearing intact, clear oral mucosa - Neck Neck: supple, normal ROM - Respiratory Respiratory effort: normal Respiratory: bilateral: CTA - Cardiovascular Rhythm: regular Heart Sounds: Present: S1 & S2 - Extremities Extremities: no ischemia, No edema - Gastrointestinal General gastrointestinal: Present: soft, non-tender, non-distended - Integumentary Integumentary: Present: clear, warm, dry - Neurologic Neurological: alert and oriented x3 - Labs CBC & Chem 7: 07/28/21 17:44 07/31/21 06:34 Labs: Laboratory Results - last 24 hr 07/30/21 07/31/21 07/31/21 08:25 05:37 06:34 PT 14.6 INR 1.03 Sodium Potassium Chloride Carbon Dioxide Anion Gap BUN Creatinine Estimated GFR BUN/Creatinine Ratio Glucose POC Glucose 162 H Calcium Total Bilirubin AST ALT Alkaline Phosphatase Total Protein Albumin Albumin/Globulin Ratio Coronavirus (PCR) Negative 07/31/21 06:34 PT INR Sodium 132 L Potassium 4.6 Chloride 101.9 Carbon Dioxide 18 L Anion Gap 17 BUN 14 Creatinine 0.7 Estimated GFR > 60 BUN/Creatinine Ratio 20 Glucose 160 H POC Glucose Calcium 8.3 L Total Bilirubin 5.20 H AST 4348 H ALT 5225 H Alkaline Phosphatase 215 H Total Protein 6.3 Albumin 2.7 L Albumin/Globulin Ratio 0.8 Coronavirus (PCR)
[2021-08-01 06:13] LABS: Hematocrit 48.5 % (30.3-42.9); Hemoglobin 15.8 gm/dl (10.1-14.3); Mean Corpuscular HGB Conc 33 % (30-34); Mean Corpuscular Volume 98 fl (79-97); Red Blood Count 4.96 M/mm3 (3.65-5.03); Red Cell Distribution Width 15.7 % (13.2-15.2)
[2021-08-01 06:14] LABS: Platelet Count 164 K/mm3 (140-440)
[2021-08-01 06:23] LABS: INR 0.97 (0.87-1.13)
[2021-08-01 06:42] LABS: Albumin 2.8 g/dL (3.9-5); BUN/Creatinine Ratio 16; Bilirubin,Direct 5.4 mg/dL (0-0.2); Blood Urea Nitrogen 14 mg/dL (7-17); Calcium 8.6 mg/dL (8.4-10.2); Hemolysis Index 6
[2021-08-01 06:55] LABS: Alanine Aminotransferase 5194 units/L (7-56)
[2021-08-01] MEDS: LEVOTHYROXINE 100 MCG TAB PO SCH (07:10)
[2021-08-01] MEDS ORDERED: DEXTROSE 50% IN WATER (25GM) 50 ML SYRINGE IV PRN (07:54)
[2021-08-01] MEDS ORDERED: DEXTROSE 10% *Hypoglycemia IV PRN (08:20)
[2021-08-01] MEDS: METOPROLOL TARTRATE 50 MG TAB PO SCH ×2 (10:08→22:53)
[2021-08-01] MEDS: ASPIRIN EC 81 MG TAB PO SCH (10:08)
[2021-08-01] MEDS: amLODIPine 5 MG TAB PO SCH (10:09)
[2021-08-01] MEDS: MULTIVITAMINS ,THERAPEUTIC TAB PO SCH (10:09)
[2021-08-01] MEDS: PANTOPRAZOLE 40 MG TAB PO SCH (10:09)
[2021-08-01] MEDS: CYANOCOBALAMIN (VIT B-12) 100 MCG TAB PO SCH (10:12)
[2021-08-01] MEDS: INSULIN LISPRO 100 UNIT/ML SUB-Q SCH ×4 (10:16→22:54)
[2021-08-01] MEDS: FLUTICASONE PROPIONATE NASAL SPRAY 16 GM NS SCH (10:20)
[2021-08-01] MEDS ORDERED: GLYCERIN ADULT 2 GRAM RECT SUPP PR NR (11:00)
--- NOTE | 2021-08-01 11:30 | XRay Report ---
ABDOMEN 1 VIEW(S) INDICATION / CLINICAL INFORMATION: abdominal pain/constipation. COMPARISON: None available. FINDINGS: TUBES / LINES: None. BOWEL GAS PATTERN: No significant abnormality. There is a mild degree of fecal matter throughout the colon. FREE AIR / EXTRALUMINAL GAS: None seen. ADDITIONAL FINDINGS: No significant additional findings. IMPRESSION: No significant abnormality. Mild constipation. Signer Name: Jero Tolliver Jr, MD Signed: 08/01/2021 11:25 AM Workstation Name: [id number]
--- NOTE | 2021-08-01 14:49 | Gastroenterology Progress Note ---
Assessment and Plan 1. Acute hepatitis - Positive IgM for Hep A but can be false positive - Agree with RAMANA check (pending) - Will continue MVI and Regular diet since INR is normal and no vomiting - OK to discharge tomorrow when LFTs improve (as they should in 1-2 days if only Hep A) - Avoid tylenol at present - Will continue protonix and MVI since on ibuprofen daily - If LFTs worsen tomorrow, or INR risking, will start empiric steroids and arrange liver biopsy to check for AIH. 2. Constipation - Narcotics stopped, and Mag Citrate written - No vomiting; continue PO diet Subjective Date of service: 08/01/21 Principal diagnosis: Abnormal LFTs Interval history: The patient is stable and has no F/C/N/V but has had severe constipation here (on narcotics). No blood in her last stool and no hx of constipation at home. Objective - Constitutional Vitals: Temp Pulse Resp BP Pulse Ox 97.4 F L 62 16 135/76 96 07/31/21 21:17 08/01/21 10:09 07/31/21 21:17 08/01/21 10:09 07/31/21 21:17 General appearance: no acute distress - EENT Eyes: PERRL, EOM intact - Respiratory Respiratory effort: normal Respiratory: bilateral: CTA - Cardiovascular Rhythm: regular Heart Sounds: Present: S1 & S2 - Gastrointestinal General gastrointestinal: Present: soft, non-tender, non-distended - Labs CBC & Chem 7: 08/01/21 05:32 08/01/21 05:32 Labs: Laboratory Results - last 24 hr 08/01/21 08/01/21 08/01/21 05:32 05:32 05:32 WBC 2.7 L RBC 4.96 Hgb 15.8 H Hct 48.5 H MCV 98 H MCH 32 MCHC 33 RDW 15.7 H Plt Count 164 PT 13.9 INR 0.97 Sodium 135 L Potassium 4.5 Chloride 103.6 Carbon Dioxide 21 L Anion Gap 15 BUN 14 Creatinine 0.9 Estimated GFR > 60 BUN/Creatinine Ratio 16 Glucose 214 H POC Glucose Calcium 8.6 Total Bilirubin 6.70 H Direct Bilirubin 5.4 H Indirect Bilirubin 1.3 AST 3573 H ALT 5194 H Alkaline Phosphatase 213 H Total Protein 6.4 Albumin 2.8 L Albumin/Globulin Ratio 0.8 08/01/21 08/01/21 07:27 11:23 WBC RBC Hgb Hct MCV MCH MCHC RDW Plt Count PT INR Sodium Potassium Chloride Carbon Dioxide Anion Gap BUN Creatinine Estimated GFR BUN/Creatinine Ratio Glucose POC Glucose 208 H 347 H Calcium Total Bilirubin Direct Bilirubin Indirect Bilirubin AST ALT Alkaline Phosphatase Total Protein Albumin Albumin/Globulin Ratio
--- NOTE | 2021-08-01 14:56 | Progress Note ---
Assessment and Plan Assessment and plan: #Acute hepatitis #Hepatitis A infection -Hepatitis A IgM positive; patient with no known risk factors -discussed prophylaxis for household members -abdominal CT and US without acute findings -continue to trend liver enzymes, AST and ALT down trending; t.bili uptrending -INR stable; if changes tomorrow will start empiric steroids -supportive care; RAMANA ordered -GI consulted, recs appreciated #Constipation -patient in pain, PRN narcotics stopped -KUB ordered, shows some constipation, no obstruction or air noted -continue miralax PRN, enema ordered #Hypovolemic hyponatremia -stable -no evidence of cirrhosis on imaging -will continue to monitor #Type II Diabetes mellitus - takes invokana at home; will hold - continue SSI + accuchecks while inpatient - consistent carb diet #Obesity - Counseled patient on the importance of weight loss, incorporating exercise, and dietary changes (lean meats, fresh fruits and vegetables, and water intake). Patient expresses understanding. - Time: +15 min #Hypertension - continue amlodipine and metoprolol. History Interval history: No acute events overnight. Patient reports worsening constipation. Currently having abdominal pain. Did not know that she had as needed laxative. No other complaints at this time. Hospitalist Physical - Physical exam Narrative exam: GENERAL: Obese. Sitting in the chair, in no acute distress. HEENT: Normocephalic. Atraumatic. mild scleral icterus noted. NECK: Supple. CHEST/LUNGS: CTAB on room air HEART/CARDIOVASCULAR: RRR. No murmur, rubs or gallops appreciated. ABDOMEN: +BS. NT/ND. NEURO: No focal motor deficit. Follows all commands. MUSCULOSKELETAL: No joint effusion EXTREMITIES: No cyanosis, clubbing or edema. PSYCH: Cooperative. - Constitutional Vitals: Temp Pulse Resp BP Pulse Ox 97.4 F L 62 16 135/76 96 07/31/21 21:17 08/01/21 10:09 07/31/21 21:17 08/01/21 10:07/31/21 21:17 General appearance: Present: mild distress, obese Results - Labs CBC & Chem 7: 08/01/21 05:32 08/01/21 05:32 Labs: Laboratory Last Values WBC 2.7 K/mm3 (4.5-11.0) L 08/01/21 05:32 RBC 4.96 M/mm3 (3.65-5.03) 08/01/21 05:32 Hgb 15.8 gm/dl (10.1-14.3) H 08/01/21 05:32 Hct 48.5 % (30.3-42.9) H 08/01/21 05:32 MCV 98 fl (79-97) H 08/01/21 05:32 MCH 32 pg (28-32) 08/01/21 05:32 MCHC 33 % (30-34) 08/01/21 05:32 RDW 15.7 % (13.2-15.2) H 08/01/21 05:32 Plt Count 164 K/mm3 (140-440) 08/01/21 05:32 Add Manual Diff Complete 07/28/21 17:44 Total Counted 100 07/28/21 17:44 Seg Neuts % (Manual) 66.0 % (40.0-70.0) 07/28/21 17:44 Band Neutrophils % 0 % 07/28/21 17:44 Lymphocytes % (Manual) 27.0 % (13.4-35.0) 07/28/21 17:44 Reactive Lymphs % (Man) 0 % 07/28/21 17:44 Monocytes % (Manual) 7.0 % (0.0-7.3) 07/28/21 17:44 Eosinophils % (Manual) 0 % (0.0-4.3) 07/28/21 17:44 Basophils % (Manual) 0 % (0.0-1.8) 07/28/21 17:44 Metamyelocytes % 0 % 07/28/21 17:44 Myelocytes % 0 % 07/28/21 17:44 Promyelocytes % 0 % 07/28/21 17:44 Blast Cells % 0 % 07/28/21 17:44 Nucleated RBC % Not Reportable 07/28/21 17:44 Seg Neutrophils # Man 1.4 K/mm3 (1.8-7.7) L 07/28/21 17:44 Band Neutrophils # 0.0 K/mm3 07/28/21 17:44 Lymphocytes # (Manual) 0.6 K/mm3 (1.2-5.4) L 07/28/21 17:44 Abs React Lymphs (Man) 0.0 K/mm3 07/28/21 17:44 Monocytes # (Manual) 0.1 K/mm3 (0.0-0.8) 07/28/21 17:44 Eosinophils # (Manual) 0.0 K/mm3 (0.0-0.4) 07/28/21 17:44 Basophils # (Manual) 0.0 K/mm3 (0.0-0.1) 07/28/21 17:44 Metamyelocytes # 0.0 K/mm3 07/28/21 17:44 Myelocytes # 0.0 K/mm3 07/28/21 17:44 Promyelocytes # 0.0 K/mm3 07/28/21 17:44 Blast Cells # 0.0 K/mm3 07/28/21 17:44 WBC Morphology Not Reportable 07/28/21 17:44 Hypersegmented Neuts Not Reportable 07/28/21 17:44 Hyposegmented Neuts Not Reportable 07/28/21 17:44 Hypogranular Neuts Not Reportable 07/28/21 17:44 Smudge Cells Not Reportable 07/28/21 17:44 Toxic Granulation Not Reportable 07/28/21 17:44 Toxic Vacuolation Not Reportable 07/28/21 17:44 Dohle Bodies Not Reportable 07/28/21 17:44 Pelger-Huet Anomaly Not Reportable 07/28/21 17:44 Deepak Rods Not Reportable 07/28/21 17:44 Platelet Estimate Consistent w auto 07/28/21 17:44 Clumped Platelets Not Reportable 07/28/21 17:44 Plt Clumps, EDTA Not Reportable 07/28/21 17:44 Large Platelets Not Reportable 07/28/21 17:44 Giant Platelets Few 07/28/21 17:44 Platelet Satelliting Not Reportable 07/28/21 17:44 Plt Morphology Comment Not Reportable 07/28/21 17:44 RBC Morphology Normal 07/28/21 17:44 Dimorphic RBCs Not Reportable 07/28/21 17:44 Polychromasia Not Reportable 07/28/21 17:44 Hypochromasia Not Reportable 07/28/21 17:44 Poikilocytosis Not Reportable 07/28/21 17:44 Anisocytosis Not Reportable 07/28/21 17:44 Microcytosis Not Reportable 07/28/21 17:44 Macrocytosis Not Reportable 07/28/21 17:44 Spherocytes Not Reportable 07/28/21 17:44 Pappenheimer Bodies Not Reportable 07/28/21 17:44 Sickle Cells Not Reportable 07/28/21 17:44 Target Cells Not Reportable 07/28/21 17:44 Tear Drop Cells Not Reportable 07/28/21 17:44 Ovalocytes Not Reportable 07/28/21 17:44 Helmet Cells Not Reportable 07/28/21 17:44 Rodriguez-[place] Bodies Not Reportable 07/28/21 17:44 Sanford Rings Not Reportable 07/28/21 17:44 Graham Cells Not Reportable 07/28/21 17:44 Bite Cells Not Reportable 07/28/21 17:44 Crenated Cell Not Reportable 07/28/21 17:44 Elliptocytes Not Reportable 07/28/21 17:44 Acanthocytes (Spur) Not Reportable 07/28/21 17:44 Rouleaux Not Reportable 07/28/21 17:44 Hemoglobin C Crystals Not Reportable 07/28/21 17:44 Schistocytes Not Reportable 07/28/21 17:44 Malaria parasites Not Reportable 07/28/21 17:44 Santhosh Bodies Not Reportable 07/28/21 17:44 Hem Pathologist Commnt No 07/28/21 17:44 PT 13.9 Sec. (12.2-14.9) 08/01/21 05:32 INR 0.97 (0.87-1.13) 08/01/21 05:32 APTT 27.2 Sec. (24.2-36.6) 07/28/21 17:44 Sodium 135 mmol/L (137-145) L 08/01/21 05:32 Potassium 4.5 mmol/L (3.6-5.0) 08/01/21 05:32 Chloride 103.6 mmol/L (98-107) 08/01/21 05:32 Carbon Dioxide 21 mmol/L (22-30) L 08/01/21 05:32 Anion Gap 15 mmol/L 08/01/21 05:32 BUN 14 mg/dL (7-17) 08/01/21 05:32 Creatinine 0.9 mg/dL (0.6-1.2) 08/01/21 05:32 Estimated GFR > 60 ml/min 08/01/21 05:32 BUN/Creatinine Ratio 16 % 08/01/21 05:32 Glucose 214 mg/dL (65-100) H 08/01/21 05:32 POC Glucose 347 mg/dL (70-105) H 08/01/21 11:23 Calcium 8.6 mg/dL (8.4-10.2) 08/01/21 05:32 Magnesium 2.00 mg/dL (1.7-2.3) 07/28/21 17:44 Total Bilirubin 6.70 mg/dL (0.1-1.2) H 08/01/21 05:32 Direct Bilirubin 5.4 mg/dL (0-0.2) H 08/01/21 05:32 Indirect Bilirubin 1.3 mg/dL 08/01/21 05:32 AST 3573 units/L (5-40) H 08/01/21 05:32 ALT 5194 units/L (7-56) H 08/01/21 05:32 Alkaline Phosphatase 213 units/L (35-129) H 08/01/21 05:32 Total Creatine Kinase 78 units/L (30-135) 07/28/21 15:38 Total Protein 6.4 g/dL (6.3-8.2) 08/01/21 05:32 Albumin 2.8 g/dL (3.9-5) L 08/01/21 05:32 Albumin/Globulin Ratio 0.8 % 08/01/21 05:32 Lipase 51 units/L (13-60) 07/28/21 15:28 Urine Color Yellow (Yellow) 07/28/21 16:34 Urine Turbidity Clear (Clear) 07/28/21 16:34 Urine pH 6.0 (5.0-7.0) 07/28/21 16:34 Ur Specific [place] 1.014 (1.003-1.030) 07/28/21 16:34 Urine Protein <15 mg/dl mg/dL (Negative) 07/28/21 16:34 Urine Glucose (UA) >=500 mg/dL (Negative) 07/28/21 16:34 Urine Ketones Neg mg/dL (Negative) 07/28/21 16:34 Urine Blood Sm (Negative) 07/28/21 16:34 Urine Nitrite Neg (Negative) 07/28/21 16:34 Urine Bilirubin Neg (Negative) 07/28/21 16:34 Urine Urobilinogen < 2.0 mg/dL (<2.0) 07/28/21 16:34 Ur Leukocyte Esterase Neg (Negative) 07/28/21 16:34 Urine WBC (Auto) < 1.0 /HPF (0.0-6.0) 07/28/21 16:34 Urine RBC (Auto) < 1.0 /HPF (0.0-6.0) 07/28/21 16:34 U Epithel Cells (Auto) 1.0 /HPF (0-13.0) 07/28/21 16:34 Acetaminophen 5.0 ug/mL (10.0-30.0) L 07/28/21 15:38 Coronavirus (PCR) Negative (Negative) 07/30/21 08:25 Hepatitis A IgM Ab Reactive (NonReactive) A 07/28/21 15:38 Hep Bs Antigen Non-reactive (Negative) 07/28/21 15:38 Hep B Core IgM Ab Non-reactive (NonReactive) 07/28/21 15:38 Hepatitis C Antibody Non-reactive (NonReactive) 07/28/21 15:38 [place]/IV: Voiding Method Toilet Active Medications - Current Medications Current Medications: Generic Name Dose Route Start Last Admin Trade Name Freq PRN Reason Stop Dose Admin Albuterol 2.5 mg 07/28/21 18:10 Albuterol 2.5 Mg/3 Ml Nebu IH Q4HRT PRN Shortness Of Breath Amlodipine Besylate 5 mg 07/29/21 10:00 08/01/21 10:09 Amlodipine 5 Mg Tab PO 5 mg QDAY MARTITA Administration Aspirin 81 mg 07/30/21 10:00 08/01/21 10:08 Aspirin Ec 81 Mg Tab PO 81 mg QDAY MARTITA Administration Cyanocobalamin 250 mcg 07/30/21 10:00 08/01/21 10:12 Cyanocobalamin (Vit B-12) 100 Mcg Tab PO 250 mcg QDAY MARTITA Administration Cyclobenzaprine HCl 10 mg 07/28/21 18:12 07/28/21 19:03 Cyclobenzaprine 10 Mg Tab PO 10 mg QHS PRN Administration Muscle Spasm Dextrose 0 ml 08/01/21 08:20 Dextrose 10% *Hypoglycemia IV PRN PRN Hypoglycemia Fluticasone Propionate 50 mcg 07/30/21 10:00 08/01/21 10:20 Fluticasone Propionate Nasal [place] 16 Gm NS 50 mcg QDAY MARTITA Administration Glycerin 1 supp 08/01/21 11:00 08/01/21 13:56 Glycerin Adult 2 Gram Rect Supp MI 08/01/21 16:00 1 supp ONCE@1100 NR Administration Ibuprofen 400 mg 07/31/21 10:00 07/31/21 14:47 Ibuprofen 400 Mg Tab PO 400 mg Q6H PRN Administration Pain, Mild (1-3) Insulin Human Lispro 0 unit 08/01/21 08:30 08/01/21 12:46 Insulin Lispro 100 Unit/Ml SUB-Q 6 unit ACHS MARTITA Administration Protocol Levothyroxine Sodium 100 mcg 07/30/21 06:00 08/01/21 07:10 Levothyroxine 100 Mcg Tab PO 100 mcg DAILY@0600 MARTITA Administration Magnesium Citrate 300 ml 08/01/21 15:00 Magnesium Citrate 300 Ml Oral Liqd PO 08/01/21 18:00 ONCE@1500 MARTITA Metoprolol Tartrate 50 mg 07/29/21 22:00 08/01/21 10:08 Metoprolol Tartrate 50 Mg Tab PO 50 mg BID MARTITA Administration Multivitamins 1 each 07/30/21 10:00 08/01/21 10:09 Multivitamins ,Therapeutic Tab PO 1 each QDAY MARTITA Administration Ondansetron HCl 4 mg 07/28/21 18:10 07/28/21 19:03 Ondansetron 4 Mg/2 Ml Inj IV 4 mg Q8H PRN Administration Nausea And Vomiting Pantoprazole Sodium 40 mg 07/29/21 16:00 08/01/21 10:09 Pantoprazole 40 Mg Tab PO 40 mg QDAC MARTITA Administration Polyethylene Glycol 17 gm 07/31/21 13:00 08/01/21 10:08 Polyethylene Glycol 3350 17 Gm Powder PO 17 gm QDAY PRN Administration Constipation Sodium Chloride 10 ml 07/28/21 22:00 08/01/21 10:12 Sodium Chloride 0.9% 10 Ml Flush Syringe IV 10 ml BID MARTITA Administration Sodium Chloride 10 ml 07/28/21 18:10 Sodium Chloride 0.9% 10 Ml Flush Syringe IV PRN PRN LINE FLUSH
[2021-08-01] MEDS ORDERED: MAGNESIUM CITRATE 300 ML ORAL LIQD PO SCH (15:00)
[2021-08-01 22:46] VITALS: BP 161/88
[2021-08-02] MEDS ORDERED: FLEET ENEMA PR ONE (00:15)
[2021-08-02] MEDS ORDERED: DOCUSATE SODIUM 100 MG CAP PO ONE (00:45)
[2021-08-02 05:56] LABS: Albumin 2.7 g/dL (3.9-5); BUN/Creatinine Ratio 17; Blood Urea Nitrogen 12 mg/dL (7-17); Hemolysis Index 0
[2021-08-02] MEDS: LEVOTHYROXINE 100 MCG TAB PO SCH (05:59)
[2021-08-02 07:02] LABS: Alanine Aminotransferase 4221 units/L (7-56)
[2021-08-02] MEDS: PANTOPRAZOLE 40 MG TAB PO SCH (08:01)
[2021-08-02] MEDS: INSULIN LISPRO 100 UNIT/ML SUB-Q SCH ×2 (08:05→13:24)
[2021-08-02] MEDS: MULTIVITAMINS ,THERAPEUTIC TAB PO SCH (09:47)
[2021-08-02] MEDS: amLODIPine 5 MG TAB PO SCH (09:47)
[2021-08-02] MEDS: METOPROLOL TARTRATE 50 MG TAB PO SCH (09:47)
[2021-08-02] MEDS: CYANOCOBALAMIN (VIT B-12) 100 MCG TAB PO SCH (09:48)
[2021-08-02] MEDS: ASPIRIN EC 81 MG TAB PO SCH (09:48)
[2021-08-02] MEDS: FLUTICASONE PROPIONATE NASAL SPRAY 16 GM NS SCH (09:49)
--- NOTE | 2021-08-02 11:41 | Discharge Summary ---
Providers - Providers Date of Admission: 07/28/21 18:10 Attending physician: EDDIE WOLFE MD 07/28/21 17:34 Consult to Physician [CONS] Urgent Comment: Consulting Provider: VENKATA HUITRON Physician Instructions: Reason For Exam: transaminitis Primary care physician: JUNE FRANCO MD Hospitalization Condition: Good Disposition: 30 STILL A PATIENT Exam - Constitutional Vitals: Temp Pulse Resp BP Pulse Ox 98.0 F 70 20 161/88 96 08/01/21 22:34 08/01/21 22:53 08/02/21 09:59 08/01/21 22:53 08/02/21 09:59 Plan Care Plan Goals: Please follow-up with your primary care provider within 1 week. Please follow-up with appointment with Dr. Huitron within the next 2 weeks. You will start taking a steroid. Please bring it with you to your appointment with him. You can restart all your home medications as prescribed. Avoid alcohol and Tylenol for now. Follow up with: PRIMARY CAREMD [Primary Care Provider] - 3-5 Days Prescriptions: predniSONE [Deltasone] 20 mg PO QDAY 14 Days #14 tab Pantoprazole [Protonix TAB] 40 mg PO QDAC 30 Days #30 tablet
[2021-08-03 01:46] LABS: ANA Screen, IFA Negative (Negative)
== END 2021-08-02 15:15 | disposition home or self-care (01) | DRG 442 ==
LOC: ED 14:12 → 3A 18:10
PROVIDERS: ADMIT Internal Medicine; ATTEND Student in an Organized Health Care Education/Training Program
DX: K72.00 Acute and subacute hepatic failure without coma (principal); B15.9 Hepatitis A without hepatic coma; E87.1 Hypo-osmolality and hyponatremia; E11.9 Type 2 diabetes mellitus without complications; E88.81 Metabolic syndrome and other insulin resistance; I10 Essential (primary) hypertension; E66.9 Obesity, unspecified; Z68.35 Body mass index [BMI] 35.0-35.9, adult; Z88.5 Allergy status to narcotic agent; Z88.8 Allergy status to other drugs, medicaments and biological substances; Z20.822 Contact with and (suspected) exposure to COVID-19; Z79.899 Other long term (current) drug therapy; E78.5 Hyperlipidemia, unspecified; E03.9 Hypothyroidism, unspecified; F17.200 Nicotine dependence, unspecified, uncomplicated; D69.6 Thrombocytopenia, unspecified; Z83.3 Family history of diabetes mellitus; Z82.49 Family history of ischemic heart disease and other diseases of the circulatory system; Z71.3 Dietary counseling and surveillance; K59.00 Constipation, unspecified
CPT/HCPCS: 36415; 74018; 74176; 76705; 80053; 80074; 80320; 81001; 82247; 82248; 82550; 82962; 83690; 83735; 85007; 85025; 85027; 85610; 85730; 86038; 93005; 93010; G0378; Q0162; Q9967; G0480; J1170; J1815; J2270; J2405; J7030; U0003

== ENCOUNTER 2021-08-07 13:51 | Emergency (ER) | payer MEDICAID ==
[2021-08-07 15:10] LABS: Hematocrit 45.7 % (30.3-42.9); Hemoglobin 15.7 gm/dl (10.1-14.3); Mean Corpuscular HGB Conc 34 % (30-34); Mean Corpuscular Volume 98 fl (79-97); Platelet Count 258 K/mm3 (140-440); Red Blood Count 4.68 M/mm3 (3.65-5.03); Red Cell Distribution Width 16.3 % (13.2-15.2)
--- NOTE | 2021-08-07 15:15 | Emergency Department Report ---
ED General Adult HPI - General Chief complaint: Weakness Stated complaint: JAUNDICE Time Seen by Provider: 08/07/21 14:41 Source: patient Mode of arrival: Ambulatory Limitations: No Limitations - History of Present Illness Initial comments: Chief complaint: "My doctor told me if I developed jaundiced to come back to the ER." HPI: This is a 61-year-old female with history of hepatitis, hypertension, diabetes mellitus who presents with jaundice. Patient developed yellow eyes and skin on Wednesday. She was released from this hospital on Wednesday. She had 12 pounds of unintentional weight loss over the last 2 months. She denies abdominal pain. She has mild dizziness. Next available appointment with Dr. Huitron therapeutic assistant would be in September. Patient states that she did drink significant amounts of alcohol. She drinks several shots several times during the week. According to electronic medical record, patient was recently admitted to this hospital for evaluation of acute hepatitis. Recently on July 28 CT abdomen pelvis was performed. No acute abnormalities were seen. Patient did have bilateral nephrolithiasis. No acute abnormality of the liver gallbladder or bile ducts according to radiology report. -: days(s) (6 days) Location: head, face, chest Consistency: intermittent Improves with: none Worsens with: none Associated Symptoms: other (Dizziness weight loss) Treatments Prior to Arrival: other (Recently discharged on Wednesday) - Related Data Home Medications Medication Instructions Recorded Confirmed Last Taken Canagliflozin [Invokana] 100 mg PO QAM 07/28/21 07/29/21 07/28/21 100 mg Levothyroxine [Synthroid] 100 mcg PO QAM 07/28/21 07/29/21 07/28/21 100 mcg Losartan [Cozaar] 100 mg PO QDAY 07/28/21 07/29/21 07/28/21 100 mg Metoprolol [Lopressor TAB] 50 mg PO BID 07/28/21 07/29/21 07/28/21 08:00 50 mg Aspirin EC [Halfprin EC] 81 mg PO QDAY 07/29/21 07/29/21 07/28/21 Cyanocobalamin (Vitamin B-12) 250 mcg PO DAILY 07/29/21 07/29/21 07/28/21 [Vitamin B-12] Fenofibrate 160 mg PO QPM 07/29/21 07/29/21 07/28/21 Fluticasone [Flonase] 1 spray NS QDAY 07/29/21 07/29/21 07/28/21 Previous Rx's Medication Instructions Recorded Last Taken Type Pantoprazole [Protonix TAB] 40 mg PO QDAC 30 Days #30 tablet 08/02/21 Unknown Rx predniSONE [Deltasone] 20 mg PO QDAY 14 Days #14 tab 08/02/21 Unknown Rx Allergies Allergy/AdvReac Type Severity Reaction Status Date / Time tramadol Allergy Intermediate Itching Verified 07/28/21 19:58 tetracycline [Tetracycline] Allergy Rash, Verified 07/29/21 10:06 itching ED Review of Systems ROS: Stated complaint: JAUNDICE Other details as noted in HPI Comment: All other systems reviewed and negative Constitutional: denies: chills, fever, malaise Respiratory: denies: cough, shortness of breath Cardiovascular: denies: chest pain Gastrointestinal: denies: abdominal pain Skin: denies: rash, lesions ED Past Medical Hx - Past Medical History Previous Medical History?: Yes Hx Hypertension: Yes Hx Diabetes: Yes Additional medical history: hypothyroidism, hyperlipidemia - Surgical History Past Surgical History?: No - Family History Family history: diabetes, hypertension - Social History Smoking Status: Current Every Day Smoker Substance Use Type: Alcohol - Medications Home Medications: Home Medications Medication Instructions Recorded Confirmed Last Taken Type Canagliflozin [Invokana] 100 mg PO QAM 07/28/21 07/29/21 07/28/21 History 100 mg Levothyroxine [Synthroid] 100 mcg PO QAM 07/28/21 07/29/21 07/28/21 History 100 mcg Losartan [Cozaar] 100 mg PO QDAY 07/28/21 07/29/21 07/28/21 History 100 mg Metoprolol [Lopressor TAB] 50 mg PO BID 07/28/21 07/29/21 07/28/21 08:00 History 50 mg Aspirin EC [Halfprin EC] 81 mg PO QDAY 07/29/21 07/29/21 07/28/21 History Cyanocobalamin (Vitamin B-12) 250 mcg PO DAILY 07/29/21 07/29/21 07/28/21 History [Vitamin B-12] Fenofibrate 160 mg PO QPM 07/29/21 07/29/21 07/28/21 History Fluticasone [Flonase] 1 spray NS QDAY 07/29/21 07/29/21 07/28/21 History Pantoprazole [Protonix TAB] 40 mg PO QDAC 30 Days #30 tablet 08/02/21 Unknown Rx predniSONE [Deltasone] 20 mg PO QDAY 14 Days #14 tab 08/02/21 Unknown Rx ED Physical Exam - General Limitations: No Limitations General appearance: alert, in no apparent distress - Head Head exam: Present: atraumatic, normocephalic - Eye Eye exam: Present: scleral icterus. Absent: conjunctival injection - ENT ENT exam: Present: mucous membranes moist - Neck Neck exam: Present: normal inspection - Respiratory Respiratory exam: Present: normal lung sounds bilaterally. Absent: respiratory distress - Cardiovascular Cardiovascular Exam: Present: regular rate, normal rhythm. Absent: systolic murmur, diastolic murmur, rubs, gallop - GI/Abdominal GI/Abdominal exam: Present: soft, normal bowel sounds. Absent: distended, te nderness, guarding, rebound - Extremities Exam Extremities exam: Present: normal inspection - Neurological Exam Neurological exam: Present: alert, oriented X3 - Psychiatric Psychiatric exam: Present: normal affect, normal mood - Skin Skin exam: Present: warm, dry, intact, other (Jaundiced face eyes chest). Absent: rash ED Course Vital Signs 08/07/21 14:05 Pulse Rate 83 Respiratory 16 Rate Blood Pressure 137/89 [Left] O2 Sat by Pulse 98 Oximetry ED Medical Decision Making - Lab Data Result diagrams: 08/07/21 14:47 08/07/21 14:47 - Medical Decision Making Liver Failure, bilirubin has increased. I spoke with Dr. Rojo who recommended close follow up. No acute inpatient treament indicated from liver standpoint. Patient has mild symptom of dizziness. Dc'd home. Suspect hyponatremia due to hypervolemia with pseudohyponatremia. Critical care attestation.: If time is entered above; I have spent that time in minutes in the direct care of this critically ill patient, excluding procedure time. ED Disposition Clinical Impression: Acute hepatic failure Disposition: HOME / SELF CARE / HOMELESS Is pt being admited?: No Does the pt Need Aspirin: No Condition: Stable Instructions: Liver Failure Referrals: KERWIN ROJO MD [Staff Physician] - [facility]
[2021-08-07 15:26] LABS: Albumin 3.4 g/dL (3.9-5); BUN/Creatinine Ratio 41; Blood Urea Nitrogen 33 mg/dL (7-17); Calcium 9.2 mg/dL (8.4-10.2); Hemolysis Index 46
[2021-08-07 15:39] LABS: Alanine Aminotransferase 882 units/L (7-56)
[2021-08-07 15:41] LABS: Basophils % (Manual) 0 % (0.0-1.8); Eosinophils % (Manual) 0 % (0.0-4.3); Total Cells Counted 100
[2021-08-07 15:42] LABS: INR 0.89 (0.87-1.13)
[2021-08-07 15:42] LABS: Large Platelets Few; Platelet Estimate Consistent w Auto; RBC Morphology Normal
[2021-08-07 16:58] VITALS: BP 134/77
== END 2021-08-07 16:56 | disposition home or self-care (01) ==
LOC: ED 13:51
DX: K72.00 Acute and subacute hepatic failure without coma (principal); Z88.1 Allergy status to other antibiotic agents; F17.200 Nicotine dependence, unspecified, uncomplicated; F10.20 Alcohol dependence, uncomplicated; I10 Essential (primary) hypertension; E11.8 Type 2 diabetes mellitus with unspecified complications
CPT/HCPCS: 36415; 80053; 83690; 85007; 85025; 85610; 99282; 99283